=== PATIENT | male | born 1945 | race Caucasian/White ===

== ENCOUNTER 2017-07-18 10:13 | Observation (INO) | payer OTHER, MEDICARE ==
[~2017-07-18] VITALS: Ht 177.8 cm; Wt 86.0 kg
[~2017-07-18 10:13] MED LIST: AMLO5 PO; ATEN25 PO; ATOR40TA PO; Amiodarone HCl200 MG PO; Aspir 8181 MG PO; CAMPHETSO TOP; CARV25 PO; CHOL10002 PO; CLON1 PO; CYCL10 PO; DEPRESSION MED; Desyrel50 MG PO; FAMO40 PO; GABA300 PO; HYDR1TAB94 PO; LEVCAR25ER PO; LISI5 PO; Lasix40 MG PO; Lisinopril2.5 MG PO; METO50ER PO; Nicoderm Cq1 EAC1 TD; Percocet 5-3251 EACH PO; Prinivil10 MG PO; SERT50 PO; SPIR25 PO; VENL150ER PO; XARELTO20 MG PO; ZOLP10 PO
[2017-07-18] MEDS ORDERED: MIRT15 PO (10:24)
[2017-07-18] MEDS ORDERED: ACET325 PO (10:25)
[2017-07-18] MEDS ORDERED: ALBU90OI61 INH (10:25)
[2017-07-18] MEDS ORDERED: BUNAVAIL BC (10:26)
[2017-07-19] MEDS ORDERED: NICO21TP (01:16)
[2017-07-19 03:20] LABS: BASOPHILS ABSOLUTE AUTO 0.02 K/mm3 (0.00-0.23); BASOPHILS PERCENT AUTO 0 % (0-2); EOSINOPHILS PERCENT AUTO 0 % (0-6); Hematocrit 32.3 % (37.0-53.0); Hemoglobin 10.3 g/dL (13.5-17.5); IMMATURE GRAN ABSOLUTE AUTO 0.08 K/mm3 (0.00-0.10); IMMATURE GRAN PERCENT AUTO 1 % (0-1); LYMPHOCYTES ABSOLUTE AUTO 1.08 K/mm3 (0.84-5.20); LYMPHOCYTES PERCENT AUTO 6 % (21-46); MONOCYTES ABSOLUTE AUTO 0.51 K/mm3 (0.16-1.47); MONOCYTES PERCENT AUTO 3 % (4-13); Mean Corpuscular HGB 30.6 pg (26.0-34.0); Mean Corpuscular HGB Conc 31.9 g/dL (31.5-36.5); Mean Corpuscular Volume 96 fL (80-100); Mean Platelet Volume 9.3 fL (9.1-12.4); NEUTROPHILS ABSOLUTE AUTO 15.52 K/mm3 (1.96-9.15); NEUTROPHILS PERCENT AUTO 90 % (41-73); Platelet Count 282 K/mm3 (150-400); RDW Coefficient Variation 13.5 % (11.7-14.2); RDW Standard Deviation 47.4 fL (35.1-46.3); Red Blood Cell Count 3.37 M/mm3 (4.30-5.90); White Blood Cell Count 17.21 K/mm3 (4.00-11.30)
[2017-07-19 03:35] LABS: Anion Gap 8 mmol/L (6-16); Blood Urea Nitrogen 18 mg/dL (8-24); Bun/Creatinine Ratio 21.9 (12.0-20.0); CO2, Blood 27 mmol/L (21-32); Calcium, Blood 7.8 mg/dL (8.5-10.1); Chloride, Blood 108 mmol/L (98-108); Creatinine, Blood 0.82 mg/dL (0.60-1.20); Glomerular Filtration Rate >60 (60-); Glucose, Blood 142 mg/dL (70-99); Potassium, Blood 4.7 mmol/L (3.5-5.5); Sodium, Blood 143 mmol/L (136-145)
[2017-07-19] MEDS ORDERED: CARV6.25 PO (18:25)
[2017-07-19] MEDS ORDERED: OMEPRAZOLE MAGN20 MG PO (18:27)
== END 2017-07-19 19:00 | disposition home or self-care (01) ==
LOC: MHTC 10:13 → ICUW 14:59 → MHTC 15:00 → ICUW 07-19 19:00
PROVIDERS: Internal Medicine Clinical Cardiac Electrophysiology
DX: I48.1 Persistent atrial fibrillation (principal); I42.0 Dilated cardiomyopathy; I34.0 Nonrheumatic mitral (valve) insufficiency; I13.10 Hypertensive heart and chronic kidney disease without heart failure, with stage 1 through stage 4 chronic kidney disease, or unspecified chronic kidney disease; N18.2 Chronic kidney disease, stage 2 (mild); I25.10 Atherosclerotic heart disease of native coronary artery without angina pectoris; I25.2 Old myocardial infarction; F17.210 Nicotine dependence, cigarettes, uncomplicated; Z79.01 Long term (current) use of anticoagulants; Z79.899 Other long term (current) drug therapy
CPT/HCPCS: 36415; 36620; 76937; 80048; 83880; 85025; 85347; 85730; 93005; 93010; 93306; 93462; 93613; 93656; 93662; 96361; 96374; 96375; 96376; C1731; C1732; C1759; C1769; C1893; C1894; G0378; J1100; J1644; J1940; J2060; J2250; J2370; J2405; J2710; J2720; J3010; J7030; J7040; J7060; J7120

== ENCOUNTER 2018-01-09 15:51 | Inpatient (IN) | payer OTHER, MEDICARE ==
[~2018-01-09] VITALS: Ht 177.8 cm; Wt 92.5 kg
[~2018-01-09 15:51] MED LIST changes: +ACET325 PO; +ALBU90OI61 INH; +BUNAVAIL BC; +CARV6.25 PO; +MIRT15 PO; +NICO21TP; +OMEPRAZOLE MAGN20 MG PO
[2018-01-09 17:11] LABS: BASOPHILS ABSOLUTE AUTO 0.02 K/mm3 (0.00-0.23); BASOPHILS PERCENT AUTO 0 % (0-2); EOSINOPHILS ABSOLUTE AUTO 0.01 K/mm3 (0.00-0.68); EOSINOPHILS PERCENT AUTO 0 % (0-6); Hemoglobin 9.8 g/dL (13.5-17.5); IMMATURE GRAN PERCENT AUTO 1 % (0-1); LYMPHOCYTES ABSOLUTE AUTO 1.18 K/mm3 (0.84-5.20); LYMPHOCYTES PERCENT AUTO 7 % (21-46); MONOCYTES ABSOLUTE AUTO 0.88 K/mm3 (0.16-1.47); MONOCYTES PERCENT AUTO 5 % (4-13); Mean Corpuscular HGB 30.2 pg (26.0-34.0); Mean Corpuscular HGB Conc 32.7 g/dL (31.5-36.5); Mean Corpuscular Volume 93 fL (80-100); Mean Platelet Volume 10.1 fL (9.1-12.4); NEUTROPHILS ABSOLUTE AUTO 15.28 K/mm3 (1.96-9.15); NEUTROPHILS PERCENT AUTO 87 % (41-73); Platelet Count 159 K/mm3 (150-400); RDW Standard Deviation 47.9 fL (35.1-46.3); Red Blood Cell Count 3.24 M/mm3 (4.30-5.90); White Blood Cell Count 17.47 K/mm3 (4.00-11.30)
[2018-01-09 17:26] LABS: Base Excess Venous -12.6 mmol/L; Bicarbonate Venous 15.1 mmol/L (24.0-30.0); PCO2 Venous 40.8 mmHg (38-42); PO2 Venous 128 mmHg (38-42); pH Blood Venous 7.19 (7.34-7.37)
[2018-01-09 17:45] LABS: International Normalized Ratio 1.62; Prothrombin Time Results 16.2 Sec (9.7-11.5)
[2018-01-09 18:00] LABS: Base Excess Venous -11.9 mmol/L; Bicarbonate Venous 15.8 mmol/L (24.0-30.0); PCO2 Venous 33.9 mmHg (38-42); PO2 Venous 159 mmHg (38-42); pH Blood Venous 7.26 (7.34-7.37)
[2018-01-09 18:12] LABS: Calcium, Blood 7.3 mg/dL (8.5-10.1); Potassium, Blood 4.4 mmol/L (3.5-5.5)
[2018-01-09 18:19] LABS: Bun/Creatinine Ratio 10.8 (12.0-20.0); Creatinine, Blood 4.62 mg/dL (0.60-1.20)
[2018-01-09 18:30] LABS: Source, Urine Clean Catch
[2018-01-09 18:42] LABS: Bilirubin, Urine Neg (Neg); Blood, Urine 4+ (Neg); Glucose Qualitative, Urine Neg (Neg); Ketones, Urine 1+ (Neg); Leukocyte Esterase, Urine Neg (Neg); Nitrite, Urine Neg (Neg); Protein, Urine 2+ (Neg); Urobilinogen, Urine NORM (Normal)
[2018-01-09 18:48] LABS: Appearance, Urine Cloudy (Clear); Color, Urine Yellow (P-Yellow)
[2018-01-09 18:49] LABS: Amorphous Light (0-Heavy); Bacteria Few /hpf; Squamous Epithelial Cells Mod /hpf (Few)
[2018-01-09 20:12] LABS: Source, Urine Catheter
[2018-01-09 20:34] LABS: Bilirubin, Urine Neg (Neg); Blood, Urine 4+ (Neg); Glucose Qualitative, Urine Neg (Neg); Ketones, Urine Neg (Neg); Leukocyte Esterase, Urine Neg (Neg); Nitrite, Urine Neg (Neg); Protein, Urine 2+ (Neg); Specific Gravity, Urine 1.015 (1.003-1.022); Urobilinogen, Urine NORM (Normal)
[2018-01-09 20:43] LABS: Amorphous Mod (0-Heavy); Appearance, Urine Hazy (Clear); Bacteria Few /hpf; Color, Urine Yellow (P-Yellow); Squamous Epithelial Cells Few /hpf (Few); Transitional Epithelial Cells Few /hpf (0-Rare); White Blood Cells, Urine Rare /hpf (0-5)
[2018-01-09 20:58] LABS: Hematocrit 30.7 % (37.0-53.0); Hemoglobin 9.9 g/dL (13.5-17.5)
[2018-01-09 21:20] LABS: Albumin, Blood 2.4 g/dL (3.4-5.0); Albumin/Globulin Ratio 0.7 (0.8-1.8); Bilirubin, Total 0.5 mg/dL (0.1-1.0); Bun/Creatinine Ratio 12.2 (12.0-20.0); Creatinine, Blood 3.84 mg/dL (0.60-1.20); Globulin, Blood 3.5 g/dL (2.2-4.0); Potassium, Blood 4.6 mmol/L (3.5-5.5); Total Protein, Blood 5.9 g/dL (6.4-8.2)
[2018-01-09] MEDS ORDERED: Carvedilol12.5 MG PO (21:30)
[2018-01-09] MEDS ORDERED: GABA400 PO (21:31)
[2018-01-09] MEDS ORDERED: SERT100 PO (21:33)
[2018-01-10 05:18] LABS: BASOPHILS ABSOLUTE AUTO 0.02 K/mm3 (0.00-0.23); BASOPHILS PERCENT AUTO 0 % (0-2); EOSINOPHILS ABSOLUTE AUTO 0.03 K/mm3 (0.00-0.68); EOSINOPHILS PERCENT AUTO 0 % (0-6); Hematocrit 32.3 % (37.0-53.0); Hemoglobin 10.7 g/dL (13.5-17.5); IMMATURE GRAN ABSOLUTE AUTO 0.11 K/mm3 (0.00-0.10); IMMATURE GRAN PERCENT AUTO 1 % (0-1); LYMPHOCYTES ABSOLUTE AUTO 0.96 K/mm3 (0.84-5.20); LYMPHOCYTES PERCENT AUTO 5 % (21-46); MONOCYTES ABSOLUTE AUTO 0.83 K/mm3 (0.16-1.47); MONOCYTES PERCENT AUTO 5 % (4-13); Mean Corpuscular HGB 29.5 pg (26.0-34.0); Mean Corpuscular HGB Conc 33.1 g/dL (31.5-36.5); Mean Platelet Volume 10.3 fL (9.1-12.4); NEUTROPHILS ABSOLUTE AUTO 16.52 K/mm3 (1.96-9.15); NEUTROPHILS PERCENT AUTO 89 % (41-73); Platelet Count 153 K/mm3 (150-400); RDW Coefficient Variation 14.2 % (11.7-14.2); RDW Standard Deviation 46.2 fL (35.1-46.3); Red Blood Cell Count 3.63 M/mm3 (4.30-5.90); White Blood Cell Count 18.47 K/mm3 (4.00-11.30)
[2018-01-10 05:20] LABS: Mean Corpuscular Volume 89 fL (80-100)
[2018-01-10 05:34] LABS: Magnesium, Blood 1.5 mg/dL (1.6-2.4)
[2018-01-10 05:42] LABS: Bun/Creatinine Ratio 15.1 (12.0-20.0); Calcium, Blood 7.2 mg/dL (8.5-10.1); Creatinine, Blood 2.85 mg/dL (0.60-1.20); Phosphorus, Blood 3.5 mg/dL (2.5-4.9); Potassium, Blood 4.7 mmol/L (3.5-5.5); Troponin I 0.652 ng/mL (0.000-0.040)
[2018-01-10 19:58] LABS: PCO2 Arterial 35.2 mmHg (35-45); PO2 Arterial 56.3 mmHg (80-100)
[2018-01-10 20:32] LABS: Calcium, Blood 7.8 mg/dL (8.5-10.1); Creatinine, Blood 1.65 mg/dL (0.60-1.20)
[2018-01-11 04:09] LABS: BASOPHILS ABSOLUTE AUTO 0.02 K/mm3 (0.00-0.23); BASOPHILS PERCENT AUTO 0 % (0-2); EOSINOPHILS PERCENT AUTO 1 % (0-6); Hematocrit 26.9 % (37.0-53.0); IMMATURE GRAN PERCENT AUTO 1 % (0-1); LYMPHOCYTES ABSOLUTE AUTO 1.06 K/mm3 (0.84-5.20); LYMPHOCYTES PERCENT AUTO 8 % (21-46); MONOCYTES ABSOLUTE AUTO 0.63 K/mm3 (0.16-1.47); MONOCYTES PERCENT AUTO 5 % (4-13); Mean Corpuscular HGB 29.9 pg (26.0-34.0); Mean Corpuscular HGB Conc 33.5 g/dL (31.5-36.5); Mean Corpuscular Volume 89 fL (80-100); Mean Platelet Volume 10.2 fL (9.1-12.4); NEUTROPHILS ABSOLUTE AUTO 11.07 K/mm3 (1.96-9.15); NEUTROPHILS PERCENT AUTO 85 % (41-73); Platelet Count 151 K/mm3 (150-400); RDW Coefficient Variation 14.2 % (11.7-14.2); RDW Standard Deviation 46.4 fL (35.1-46.3); Red Blood Cell Count 3.01 M/mm3 (4.30-5.90); White Blood Cell Count 12.98 K/mm3 (4.00-11.30)
[2018-01-11 04:22] LABS: Albumin, Blood 2.1 g/dL (3.4-5.0); Anion Gap 6 mmol/L (6-16); Blood Urea Nitrogen 28 mg/dL (8-24); Bun/Creatinine Ratio 21.2 (12.0-20.0); CO2, Blood 25 mmol/L (21-32); Calcium, Blood 7.7 mg/dL (8.5-10.1); Chloride, Blood 109 mmol/L (98-108); Creatinine, Blood 1.32 mg/dL (0.60-1.20); Glomerular Filtration Rate 56 (60-); Glucose, Blood 106 mg/dL (70-99); Magnesium, Blood 1.6 mg/dL (1.6-2.4); Phosphorus, Blood 2.1 mg/dL (2.5-4.9); Potassium, Blood 3.8 mmol/L (3.5-5.5); Sodium, Blood 140 mmol/L (136-145)
[2018-01-11 08:48] LABS: Stool Occult Blood Guaiac 1 Neg (Neg)
[2018-01-12 03:48] LABS: BASOPHILS ABSOLUTE AUTO 0.01 K/mm3 (0.00-0.23); BASOPHILS PERCENT AUTO 0 % (0-2); EOSINOPHILS ABSOLUTE AUTO 0.24 K/mm3 (0.00-0.68); EOSINOPHILS PERCENT AUTO 2 % (0-6); Hematocrit 26.7 % (37.0-53.0); Hemoglobin 8.9 g/dL (13.5-17.5); IMMATURE GRAN ABSOLUTE AUTO 0.06 K/mm3 (0.00-0.10); IMMATURE GRAN PERCENT AUTO 1 % (0-1); LYMPHOCYTES ABSOLUTE AUTO 0.97 K/mm3 (0.84-5.20); LYMPHOCYTES PERCENT AUTO 8 % (21-46); MONOCYTES ABSOLUTE AUTO 0.62 K/mm3 (0.16-1.47); MONOCYTES PERCENT AUTO 5 % (4-13); Mean Corpuscular HGB 30.1 pg (26.0-34.0); Mean Corpuscular HGB Conc 33.3 g/dL (31.5-36.5); Mean Corpuscular Volume 90 fL (80-100); Mean Platelet Volume 9.9 fL (9.1-12.4); NEUTROPHILS ABSOLUTE AUTO 9.92 K/mm3 (1.96-9.15); NEUTROPHILS PERCENT AUTO 84 % (41-73); Platelet Count 178 K/mm3 (150-400); RDW Coefficient Variation 14.2 % (11.7-14.2); RDW Standard Deviation 46.8 fL (35.1-46.3); Red Blood Cell Count 2.96 M/mm3 (4.30-5.90); White Blood Cell Count 11.82 K/mm3 (4.00-11.30)
[2018-01-12 04:02] LABS: Anion Gap 7 mmol/L (6-16); Blood Urea Nitrogen 20 mg/dL (8-24); Bun/Creatinine Ratio 18.7 (12.0-20.0); CO2, Blood 27 mmol/L (21-32); Calcium, Blood 7.9 mg/dL (8.5-10.1); Chloride, Blood 108 mmol/L (98-108); Creatinine, Blood 1.07 mg/dL (0.60-1.20); Glomerular Filtration Rate >60 (60-); Glucose, Blood 103 mg/dL (70-99); Magnesium, Blood 1.3 mg/dL (1.6-2.4); Phosphorus, Blood 2.5 mg/dL (2.5-4.9); Potassium, Blood 3.7 mmol/L (3.5-5.5); Sodium, Blood 142 mmol/L (136-145)
[2018-01-12 08:02] LABS: Base Excess Venous 3.9 mmol/L; Bicarbonate Venous 27.5 mmol/L (24.0-30.0); PCO2 Venous 43.1 mmHg (38-42); PO2 Venous 68.8 mmHg (38-42); pH Blood Venous 7.43 (7.34-7.37)
[2018-01-13 04:43] LABS: BASOPHILS ABSOLUTE AUTO 0.01 K/mm3 (0.00-0.23); BASOPHILS PERCENT AUTO 0 % (0-2); EOSINOPHILS ABSOLUTE AUTO 0.39 K/mm3 (0.00-0.68); EOSINOPHILS PERCENT AUTO 4 % (0-6); Hematocrit 26.4 % (37.0-53.0); Hemoglobin 8.4 g/dL (13.5-17.5); IMMATURE GRAN ABSOLUTE AUTO 0.04 K/mm3 (0.00-0.10); IMMATURE GRAN PERCENT AUTO 0 % (0-1); LYMPHOCYTES ABSOLUTE AUTO 1.03 K/mm3 (0.84-5.20); LYMPHOCYTES PERCENT AUTO 10 % (21-46); MONOCYTES ABSOLUTE AUTO 0.65 K/mm3 (0.16-1.47); MONOCYTES PERCENT AUTO 6 % (4-13); Mean Corpuscular HGB 28.8 pg (26.0-34.0); Mean Corpuscular HGB Conc 31.8 g/dL (31.5-36.5); Mean Corpuscular Volume 90 fL (80-100); Mean Platelet Volume 10.1 fL (9.1-12.4); NEUTROPHILS ABSOLUTE AUTO 8.11 K/mm3 (1.96-9.15); NEUTROPHILS PERCENT AUTO 79 % (41-73); Platelet Count 191 K/mm3 (150-400); RDW Coefficient Variation 14.2 % (11.7-14.2); RDW Standard Deviation 46.9 fL (35.1-46.3); Red Blood Cell Count 2.92 M/mm3 (4.30-5.90); White Blood Cell Count 10.23 K/mm3 (4.00-11.30)
[2018-01-13 05:19] LABS: Albumin, Blood 1.8 g/dL (3.4-5.0); Anion Gap 8 mmol/L (6-16); Blood Urea Nitrogen 19 mg/dL (8-24); Bun/Creatinine Ratio 18.4 (12.0-20.0); CO2, Blood 29 mmol/L (21-32); Calcium, Blood 7.8 mg/dL (8.5-10.1); Chloride, Blood 104 mmol/L (98-108); Creatinine, Blood 1.03 mg/dL (0.60-1.20); Glomerular Filtration Rate >60 (60-); Glucose, Blood 101 mg/dL (70-99); Magnesium, Blood 1.4 mg/dL (1.6-2.4); Potassium, Blood 3.2 mmol/L (3.5-5.5); Sodium, Blood 141 mmol/L (136-145)
[2018-01-14 08:35] LABS: Anion Gap 8 mmol/L (6-16); Blood Urea Nitrogen 22 mg/dL (8-24); CO2, Blood 30 mmol/L (21-32); Calcium, Blood 8.3 mg/dL (8.5-10.1); Chloride, Blood 103 mmol/L (98-108); Creatinine, Blood 0.85 mg/dL (0.60-1.20); Glomerular Filtration Rate >60 (60-); Glucose, Blood 112 mg/dL (70-99); Magnesium, Blood 1.8 mg/dL (1.6-2.4); Potassium, Blood 3.1 mmol/L (3.5-5.5); Sodium, Blood 141 mmol/L (136-145)
[2018-01-15 10:48] LABS: Anion Gap 8 mmol/L (6-16); Blood Urea Nitrogen 22 mg/dL (8-24); Bun/Creatinine Ratio 23.1 (12.0-20.0); CO2, Blood 32 mmol/L (21-32); Calcium, Blood 8.8 mg/dL (8.5-10.1); Chloride, Blood 101 mmol/L (98-108); Creatinine, Blood 0.95 mg/dL (0.60-1.20); Glomerular Filtration Rate >60 (60-); Glucose, Blood 125 mg/dL (70-99); Potassium, Blood 3.2 mmol/L (3.5-5.5); Sodium, Blood 141 mmol/L (136-145)
[2018-01-15 15:24] LABS: A/G RATIO 0.9 (0.7-1.7); ALBUMIN 2.4 g/dL (2.9-4.4); ALPHA-1-GLOBULIN 0.4 g/dL (0.0-0.4); BETA GLOBULIN 0.7 g/dL (0.7-1.3); GAMMA GLOBULIN 0.9 g/dL (0.4-1.8); IMMUNOGLOBULIN A, QN, SERUM 195 mg/dL (61-437); IMMUNOGLOBULIN G, QN, SERUM 719 mg/dL (700-1600); IMMUNOGLOBULIN M, QN, SERUM 114 mg/dL (15-143); M-SPIKE Not Observed g/dL (Not Observed); PROTEIN, TOTAL, SERUM 5.4 g/dL (6.0-8.5)
[2018-01-16 06:39] LABS: BASOPHILS ABSOLUTE AUTO 0.03 K/mm3 (0.00-0.23); BASOPHILS PERCENT AUTO 0 % (0-2); EOSINOPHILS ABSOLUTE AUTO 0.58 K/mm3 (0.00-0.68); EOSINOPHILS PERCENT AUTO 7 % (0-6); Hematocrit 28.4 % (37.0-53.0); Hemoglobin 9.1 g/dL (13.5-17.5); IMMATURE GRAN ABSOLUTE AUTO 0.05 K/mm3 (0.00-0.10); IMMATURE GRAN PERCENT AUTO 1 % (0-1); LYMPHOCYTES ABSOLUTE AUTO 1.43 K/mm3 (0.84-5.20); LYMPHOCYTES PERCENT AUTO 17 % (21-46); MONOCYTES ABSOLUTE AUTO 0.54 K/mm3 (0.16-1.47); MONOCYTES PERCENT AUTO 6 % (4-13); Mean Corpuscular HGB 29.8 pg (26.0-34.0); Mean Platelet Volume 9.3 fL (9.1-12.4); NEUTROPHILS ABSOLUTE AUTO 6.02 K/mm3 (1.96-9.15); NEUTROPHILS PERCENT AUTO 70 % (41-73); Platelet Count 303 K/mm3 (150-400); RDW Coefficient Variation 14.2 % (11.7-14.2); RDW Standard Deviation 48.1 fL (35.1-46.3); Red Blood Cell Count 3.05 M/mm3 (4.30-5.90); White Blood Cell Count 8.65 K/mm3 (4.00-11.30)
[2018-01-16 06:41] LABS: Mean Corpuscular Volume 93 fL (80-100)
[2018-01-16 07:06] LABS: Anion Gap 8 mmol/L (6-16); Blood Urea Nitrogen 20 mg/dL (8-24); Bun/Creatinine Ratio 22.8 (12.0-20.0); CO2, Blood 32 mmol/L (21-32); Calcium, Blood 8.3 mg/dL (8.5-10.1); Chloride, Blood 103 mmol/L (98-108); Creatinine, Blood 0.88 mg/dL (0.60-1.20); Glomerular Filtration Rate >60 (60-); Glucose, Blood 98 mg/dL (70-99); Magnesium, Blood 1.7 mg/dL (1.6-2.4); Phosphorus, Blood 3.1 mg/dL (2.5-4.9); Potassium, Blood 3.3 mmol/L (3.5-5.5); Sodium, Blood 143 mmol/L (136-145)
[2018-01-16 15:18] LABS: M-SPIKE, % Not Observed % (Not Observed); PROTEIN,TOTAL,URINE 35.6 mg/dL (Not Estab.)
[2018-01-16 16:15] LABS: A/G RATIO 0.8 (0.7-1.7); ALBUMIN 2.2 g/dL (2.9-4.4); ALPHA-1-GLOBULIN 0.5 g/dL (0.0-0.4); ALPHA-2-GLOBULIN 0.9 g/dL (0.4-1.0); BETA GLOBULIN 0.7 g/dL (0.7-1.3); GAMMA GLOBULIN 0.7 g/dL (0.4-1.8); GLOBULIN, TOTAL 2.8 g/dL (2.2-3.9); IMMUNOGLOBULIN A, QN, SERUM 179 mg/dL (61-437); IMMUNOGLOBULIN G, QN, SERUM 636 mg/dL (700-1600); IMMUNOGLOBULIN M, QN, SERUM 105 mg/dL (15-143); M-SPIKE Not Observed g/dL (Not Observed)
[2018-01-17 05:31] LABS: Anion Gap 8 mmol/L (6-16); Blood Urea Nitrogen 21 mg/dL (8-24); Bun/Creatinine Ratio 21.7 (12.0-20.0); CO2, Blood 33 mmol/L (21-32); Calcium, Blood 8.3 mg/dL (8.5-10.1); Chloride, Blood 100 mmol/L (98-108); Creatinine, Blood 0.97 mg/dL (0.60-1.20); Glomerular Filtration Rate >60 (60-); Glucose, Blood 103 mg/dL (70-99); Magnesium, Blood 1.9 mg/dL (1.6-2.4); Phosphorus, Blood 3.4 mg/dL (2.5-4.9); Potassium, Blood 3.6 mmol/L (3.5-5.5); Sodium, Blood 141 mmol/L (136-145)
[2018-01-18 05:32] LABS: Anion Gap 8 mmol/L (6-16); Blood Urea Nitrogen 24 mg/dL (8-24); Bun/Creatinine Ratio 23.1 (12.0-20.0); CO2, Blood 34 mmol/L (21-32); Calcium, Blood 8.3 mg/dL (8.5-10.1); Chloride, Blood 98 mmol/L (98-108); Creatinine, Blood 1.04 mg/dL (0.60-1.20); Glomerular Filtration Rate >60 (60-); Glucose, Blood 106 mg/dL (70-99); Magnesium, Blood 1.8 mg/dL (1.6-2.4); Potassium, Blood 3.7 mmol/L (3.5-5.5); Sodium, Blood 140 mmol/L (136-145)
[2018-01-19 04:54] LABS: BASOPHILS ABSOLUTE AUTO 0.03 K/mm3 (0.00-0.23); BASOPHILS PERCENT AUTO 0 % (0-2); EOSINOPHILS ABSOLUTE AUTO 0.42 K/mm3 (0.00-0.68); EOSINOPHILS PERCENT AUTO 6 % (0-6); Hematocrit 32.2 % (37.0-53.0); Hemoglobin 9.9 g/dL (13.5-17.5); IMMATURE GRAN ABSOLUTE AUTO 0.08 K/mm3 (0.00-0.10); IMMATURE GRAN PERCENT AUTO 1 % (0-1); LYMPHOCYTES ABSOLUTE AUTO 1.25 K/mm3 (0.84-5.20); LYMPHOCYTES PERCENT AUTO 17 % (21-46); MONOCYTES ABSOLUTE AUTO 0.55 K/mm3 (0.16-1.47); MONOCYTES PERCENT AUTO 7 % (4-13); Mean Corpuscular HGB 28.5 pg (26.0-34.0); Mean Corpuscular HGB Conc 30.7 g/dL (31.5-36.5); Mean Corpuscular Volume 93 fL (80-100); Mean Platelet Volume 9.7 fL (9.1-12.4); NEUTROPHILS ABSOLUTE AUTO 5.09 K/mm3 (1.96-9.15); NEUTROPHILS PERCENT AUTO 69 % (41-73); Platelet Count 356 K/mm3 (150-400); RDW Coefficient Variation 13.9 % (11.7-14.2); RDW Standard Deviation 47.3 fL (35.1-46.3); Red Blood Cell Count 3.47 M/mm3 (4.30-5.90); White Blood Cell Count 7.42 K/mm3 (4.00-11.30)
[2018-01-19 05:14] LABS: Anion Gap 7 mmol/L (6-16); Blood Urea Nitrogen 22 mg/dL (8-24); Bun/Creatinine Ratio 22.9 (12.0-20.0); CO2, Blood 35 mmol/L (21-32); Calcium, Blood 8.3 mg/dL (8.5-10.1); Chloride, Blood 98 mmol/L (98-108); Creatinine, Blood 0.96 mg/dL (0.60-1.20); Glomerular Filtration Rate >60 (60-); Glucose, Blood 100 mg/dL (70-99); Potassium, Blood 4.2 mmol/L (3.5-5.5); Sodium, Blood 140 mmol/L (136-145)
[2018-01-20] MEDS ORDERED: SERT50 PO (12:50)
[2018-01-20] MEDS ORDERED: SPIR50 PO (12:50)
[2018-01-20] MEDS ORDERED: FURO80 PO (12:54)
[2018-01-20] MEDS ORDERED: TAMS.4ER PO (12:55)
[2018-01-20] MEDS ORDERED: Aspirin EC81 MG PO (12:56)
== END 2018-01-20 13:59 | disposition home or self-care (01) | DRG 871 ==
LOC: ER 15:51 → ICUW 15:52 → ICUE 17:08 → ICUW 17:20 → PCU 20:24 → ICUE 20:24 → PCU 01-12 14:13 → MEDS 01-15 18:37 → EDPENDDIS 01-19 10:14 → ENPENDDIS 01-19 10:14 → EDPENDDISTM 01-20 09:28 → EDPENDDIS 01-20 09:28 → EDPENDDISDT 01-20 09:28 → MEDS 01-20 13:59
PROVIDERS: Emergency Medicine; Internal Medicine; Internal Medicine Critical Care Medicine; Internal Medicine Nephrology; Nurse Practitioner Acute Care
DX: A41.9 Sepsis, unspecified organism (principal); G93.41 Metabolic encephalopathy; J96.01 Acute respiratory failure with hypoxia; J18.9 Pneumonia, unspecified organism; N17.0 Acute kidney failure with tubular necrosis; I50.43 Acute on chronic combined systolic (congestive) and diastolic (congestive) heart failure; I21.9 Acute myocardial infarction, unspecified; I21.3 ST elevation (STEMI) myocardial infarction of unspecified site; E87.2 Acidosis; R65.20 Severe sepsis without septic shock; E78.5 Hyperlipidemia, unspecified; F41.8 Other specified anxiety disorders; F43.10 Post-traumatic stress disorder, unspecified; K21.9 Gastro-esophageal reflux disease without esophagitis; I48.2 Chronic atrial fibrillation; F17.210 Nicotine dependence, cigarettes, uncomplicated; I95.9 Hypotension, unspecified; D64.9 Anemia, unspecified; I25.2 Old myocardial infarction; I11.0 Hypertensive heart disease with heart failure; Z96.653 Presence of artificial knee joint, bilateral; E83.42 Hypomagnesemia; I25.5 Ischemic cardiomyopathy; F03.90 Unspecified dementia, unspecified severity, without behavioral disturbance, psychotic disturbance, mood disturbance, and anxiety; E83.39 Other disorders of phosphorus metabolism; E87.6 Hypokalemia; G89.4 Chronic pain syndrome
CPT/HCPCS: 36415; 36600; 71045; 71046; 76770; 80048; 80053; 80069; 81001; 82272; 82550; 82784; 82803; 83605; 83735; 83880; 84100; 84132; 84145; 84156; 84165; 84166; 84443; 84484; 85014; 85018; 85025; 85379; 85610; 86334; 86850; 86900; 86901; 87040; 87070; 87205; 93005; 93010; 93308; 93321; 94640; 94660; 94760; 94761; 94762; 97110; 97116; 97161; 97530; 99285-25; C9113; G8978; G8979; J0696; J1940; J1956; J2405; J3475; J7030; J7060; J7070; J7120

== ENCOUNTER 2020-03-11 06:03 | Day surgery (SDC) | payer OTHER, MEDICARE ==
[~2020-03-11] VITALS: Ht 182.9 cm; Wt 100.0 kg
[~2020-03-11 06:03] MED LIST changes: +ABAT250V; +Aspirin EC81 MG PO; +Bisoprolol Fumar5 MG PO; +Carvedilol12.5 MG PO; +FURO80 PO; +GABA400 PO; +Nitroglycerin1 EAC3 TOP; +PROAIR DIGIHAL90 MCG IH; +SERT100 PO; +SPIR50 PO; +TAMS.4ER PO
[2020-03-11] MEDS ORDERED: GABA100 PO (06:31)
[2020-03-11] MEDS ORDERED: NITROGLYCERIN TD (06:35)
[2020-03-11] MEDS ORDERED: [UNRECOGNIZED DRUG - OTHER] BC (06:38)
--- NOTE | 2020-03-11 09:02 | NUR ---
0835 ASSUMED CARE OF PATIENT, SBAR FROM FIONA ARCHIBALD. DIET ORDERED AND PATIENT IN THE MONITOR IN A RECLINER, NO PAIN NOTED. CALL LIGHT IN REACH. TR BAND IN PLACE TO THE RIGHT RADIAL AND WHITE BOARD IN USE. NO BLEEDING NOTED.
--- NOTE | 2020-03-11 09:55 | NUR ---
0950 BEGAN REMOVING AIR FROM THE TR BAND. NO BLEEDING NOTED. CONTINUE TO MONITOR.
--- NOTE | 2020-03-11 10:31 | NUR ---
PATIENT TR BAND IS FLAT. NO BLEEDING NOTED. PATIENT UP TO DRESS AND TO THE RESTROOM. ALL BELONGINGS GATHERED. REVIEWED DISCHARGE INSTRUCTIONS.
--- NOTE | 2020-03-11 11:02 | NUR ---
1100 TR BAND REMOVED AND SITE CLEANED, CLOTH DOT APPLIED AND WHITE BOARD REPLACED. PATIENT INSTRUCTED TO WEAR THE WHITE BOARD FOR 24 HOURS TO RESTRICT MOVEMENT AND FROM BENDING RIGHT WRIST. NO BLEEDING NOTED. NO PAIN NOTED. REVIEWED DISCHARGE INSTRUCTIONS AND PATIENT UNDERSTANDS THAT HE WILL BE CONTACTED BY THE [facility] IN [place] FOR INSTRUCTIONS REGARDING SURGERY. PATIENT DISCHARGED, ALL BELONGINGS RETAINED AND INSTRUCTIONS IN HAND, VIA WHEELCHAIR TO SISTER HIS ASH PIT WORKER.
== END 2020-03-11 12:22 | disposition home or self-care (01) ==
LOC: MHTC 06:03
PROC: 4A023N7 Measurement of Cardiac Sampling and Pressure, Left Heart, Percutaneous Approach (ICD-10-PCS; principal; 2020-03-11)
PROC: B201YZZ Plain Radiography of Multiple Coronary Arteries using Other Contrast (ICD-10-PCS; principal; 2020-03-11)
DX: I25.119 Atherosclerotic heart disease of native coronary artery with unspecified angina pectoris (principal); I25.82 Chronic total occlusion of coronary artery; I13.0 Hypertensive heart and chronic kidney disease with heart failure and stage 1 through stage 4 chronic kidney disease, or unspecified chronic kidney disease; R07.89 Other chest pain; I25.5 Ischemic cardiomyopathy; I50.21 Acute systolic (congestive) heart failure; F41.9 Anxiety disorder, unspecified; E66.9 Obesity, unspecified; E78.00 Pure hypercholesterolemia, unspecified; Z79.82 Long term (current) use of aspirin; F17.210 Nicotine dependence, cigarettes, uncomplicated; N18.1 Chronic kidney disease, stage 1; Z79.01 Long term (current) use of anticoagulants; Z79.899 Other long term (current) drug therapy; Z68.32 Body mass index [BMI] 32.0-32.9, adult
CPT/HCPCS: 76937; 85347; 93454; 93458; 99152; 99153; C1769; C1894; J1644; J2250; J3010; J7030; J7040; Q9967

== ENCOUNTER 2020-11-17 16:29 | Emergency (ER) | payer OTHER ==
[~2020-11-17] VITALS: Ht 182.9 cm; Wt 93.0 kg
[~2020-11-17 16:29] MED LIST changes: +GABA100 PO; +K-Dur10 MEQ PO; +Lasix20 MG PO; +NITROGLYCERIN TD; -XARELTO20 MG PO; +[UNRECOGNIZED DRUG - OTHER] BC
[2020-11-17 17:12] LABS: BASOPHILS ABSOLUTE AUTO 0.06 K/mm3 (0.00-0.23); BASOPHILS PERCENT AUTO 1 % (0-2); EOSINOPHILS ABSOLUTE AUTO 0.36 K/mm3 (0.00-0.68); EOSINOPHILS PERCENT AUTO 4 % (0-6); Hematocrit 28.1 % (37.0-53.0); Hemoglobin 8.4 g/dL (13.5-17.5); IMMATURE GRAN ABSOLUTE AUTO 0.03 K/mm3 (0.00-0.10); IMMATURE GRAN PERCENT AUTO 0 % (0-1); LYMPHOCYTES ABSOLUTE AUTO 2.27 K/mm3 (0.84-5.20); LYMPHOCYTES PERCENT AUTO 26 % (21-46); MONOCYTES ABSOLUTE AUTO 0.68 K/mm3 (0.16-1.47); MONOCYTES PERCENT AUTO 8 % (4-13); Mean Corpuscular HGB Conc 29.9 g/dL (31.5-36.5); Mean Corpuscular Volume 87 fL (80-100); Mean Platelet Volume 10.6 fL (9.1-12.4); NEUTROPHILS ABSOLUTE AUTO 5.39 K/mm3 (1.96-9.15); NEUTROPHILS PERCENT AUTO 61 % (41-73); Platelet Count 292 K/mm3 (150-400); RDW Coefficient Variation 15.9 % (11.7-14.2); RDW Standard Deviation 50.8 fL (35.1-46.3); Red Blood Cell Count 3.23 M/mm3 (4.30-5.90); White Blood Cell Count 8.79 K/mm3 (4.00-11.30)
[2020-11-17 17:34] LABS: International Normalized Ratio 1.09; Prothrombin Time Results 11.7 Sec (9.7-11.5)
[2020-11-17 17:36] LABS: Albumin, Blood 3.3 g/dL (3.4-5.0); Albumin/Globulin Ratio 0.8 (0.8-1.8); Bilirubin, Total 0.3 mg/dL (0.1-1.0); Bun/Creatinine Ratio 18.3 (12.0-20.0); Calcium, Blood 8.6 mg/dL (8.5-10.1); Creatinine, Blood 1.31 mg/dL (0.60-1.20); Globulin, Blood 4.2 g/dL (2.2-4.0); Potassium, Blood 4.1 mmol/L (3.5-5.5); Total Protein, Blood 7.5 g/dL (6.4-8.2)
[2020-12-23] MEDS ORDERED: ASPI81CH PO (23:35)
[2020-12-26] MEDS ORDERED: ALBU2.5V5 INH (11:19)
== END 2020-11-17 18:15 | disposition home or self-care (01) ==
LOC: ER 16:29
PROVIDERS: Physician Assistant
DX: S41.112A Laceration without foreign body of left upper arm, initial encounter (principal); I10 Essential (primary) hypertension; I25.2 Old myocardial infarction; F17.210 Nicotine dependence, cigarettes, uncomplicated; Z79.01 Long term (current) use of anticoagulants; W45.8XXA Other foreign body or object entering through skin, initial encounter
CPT/HCPCS: 12001; 36415; 80053; 85025; 85610; 90471; 90714; 99283-25

== ENCOUNTER 2020-12-22 11:40 | Emergency (ER) | payer OTHER, MEDICARE ==
[~2020-12-22] VITALS: Ht 182.9 cm; Wt 90.7 kg
[2020-12-23] MEDS ORDERED: ASPI81CH PO ×2 (23:35)
[2021-01-12] MEDS ORDERED: Bisoprolol Fumar5 MG PO ×2 (16:43)
[2021-01-12] MEDS ORDERED: ATOR40TA PO ×2 (16:44)
[2021-01-12] MEDS ORDERED: Acetaminophen650 M1 PO ×2 (16:45)
[2021-01-12] MEDS ORDERED: CLOP75 PO ×2 (16:48)
[2021-01-12] MEDS ORDERED: GABA400 PO ×2 (16:50)
[2021-01-12] MEDS ORDERED: Isosorbide Mono30 MG PO ×2 (16:51)
[2021-01-12] MEDS ORDERED: HYDHCL25 PO ×2 (16:51)
[2021-01-12] MEDS ORDERED: DILT30 PO ×2 (16:53)
[2021-01-12] MEDS ORDERED: NICODERM CQ1 EA11 TD ×2 (16:55)
[2021-01-12] MEDS ORDERED: POTA10T PO ×2 (16:56)
[2021-01-12] MEDS ORDERED: NITR.4SL SL ×2 (16:56)
[2021-01-12] MEDS ORDERED: SPIR25 PO ×2 (16:57)
[2021-01-12] MEDS ORDERED: SERT50 PO ×2 (16:57)
[2021-01-12] MEDS ORDERED: XARELTO20 MG PO ×2 (16:57)
[2021-01-12] MEDS ORDERED: TAMS.4ER PO ×2 (16:57)
== END 2020-12-22 13:15 | disposition home or self-care (01) ==
LOC: ER 11:40
DX: S41.112A Laceration without foreign body of left upper arm, initial encounter (principal); K21.9 Gastro-esophageal reflux disease without esophagitis; I25.10 Atherosclerotic heart disease of native coronary artery without angina pectoris; I25.2 Old myocardial infarction; I48.91 Unspecified atrial fibrillation; I11.0 Hypertensive heart disease with heart failure; I50.9 Heart failure, unspecified; F17.210 Nicotine dependence, cigarettes, uncomplicated; Z79.01 Long term (current) use of anticoagulants; W45.8XXA Other foreign body or object entering through skin, initial encounter
CPT/HCPCS: 99282

== ENCOUNTER 2020-12-23 18:10 | Observation (INO) | payer OTHER ==
[~2020-12-23] VITALS: Ht 182.9 cm; Wt 90.7 kg
[2020-12-23 18:27] LABS: BASOPHILS ABSOLUTE AUTO 0.04 K/mm3 (0.00-0.23); BASOPHILS PERCENT AUTO 1 % (0-2); EOSINOPHILS ABSOLUTE AUTO 0.24 K/mm3 (0.00-0.68); EOSINOPHILS PERCENT AUTO 3 % (0-6); Hematocrit 30.5 % (37.0-53.0); Hemoglobin 9.1 g/dL (13.5-17.5); IMMATURE GRAN ABSOLUTE AUTO 0.01 K/mm3 (0.00-0.10); IMMATURE GRAN PERCENT AUTO 0 % (0-1); LYMPHOCYTES ABSOLUTE AUTO 1.77 K/mm3 (0.84-5.20); LYMPHOCYTES PERCENT AUTO 24 % (21-46); MONOCYTES ABSOLUTE AUTO 0.62 K/mm3 (0.16-1.47); MONOCYTES PERCENT AUTO 8 % (4-13); Mean Corpuscular HGB 24.1 pg (26.0-34.0); Mean Corpuscular HGB Conc 29.8 g/dL (31.5-36.5); Mean Corpuscular Volume 81 fL (80-100); Mean Platelet Volume 10.5 fL (9.1-12.4); NEUTROPHILS ABSOLUTE AUTO 4.69 K/mm3 (1.96-9.15); NEUTROPHILS PERCENT AUTO 64 % (41-73); Platelet Count 288 K/mm3 (150-400); RDW Coefficient Variation 17.2 % (11.7-14.2); RDW Standard Deviation 50.4 fL (35.1-46.3); Red Blood Cell Count 3.78 M/mm3 (4.30-5.90); White Blood Cell Count 7.37 K/mm3 (4.00-11.30)
[2020-12-23 18:48] LABS: Alanine Aminotransfer (ALT/SGP 15 U/L (12-78); Albumin, Blood 3.2 g/dL (3.4-5.0); Albumin/Globulin Ratio 0.7 (0.8-1.8); Alk Phos 130 U/L (50-136); Anion Gap 8 mmol/L (6-16); Aspartate Aminotrans (AST/SGOT 18 U/L (12-37); Bilirubin, Total 0.3 mg/dL (0.1-1.0); Blood Urea Nitrogen 32 mg/dL (8-24); Bun/Creatinine Ratio 17.5 (12.0-20.0); CO2, Blood 25 mmol/L (21-32); Calcium, Blood 8.8 mg/dL (8.5-10.1); Chloride, Blood 106 mmol/L (98-108); Creatinine, Blood 1.83 mg/dL (0.60-1.20); Globulin, Blood 4.3 g/dL (2.2-4.0); Glomerular Filtration Rate 38 (60-); Glucose, Blood 121 mg/dL (70-99); Potassium, Blood 3.9 mmol/L (3.5-5.5); Sodium, Blood 139 mmol/L (136-145); Total Protein, Blood 7.5 g/dL (6.4-8.2)
[2020-12-23 21:51] LABS: PCO2 Arterial 42.8 mmHg (35-45); PO2 Arterial 64.5 mmHg (80-100); pH Blood Arterial 7.42 (7.35-7.45)
[2020-12-23 22:17] LABS: Troponin I <0.015 ng/mL (0.000-0.040)
[2020-12-23] MEDS ORDERED: ASPI81CH PO ×2 (23:35)
--- NOTE | 2020-12-24 04:03 | NUR ---
JUNIOR ACCOUNTANT BOOKKEEPER SUMMARY PT NEW ADMIT, ARRIVE TO FLOOR AT 2345. A/O X4 WITH FORGETFULNESS. DENIES NAUSEA, SOB, AND PAIN. ROOM AIR SATTING IN THE LOW TO MID 90'S. PT DENIES SOB AT REST. SINUS ZARA IN THE MID 50'S PER PRINT SHOP MANAGER. BED ALARM ON, CALL LIGHT WITHIN REACH. WILL CONTINUE TO MONITOR.
[2020-12-24 05:07] LABS: BASOPHILS ABSOLUTE AUTO 0.05 K/mm3 (0.00-0.23); BASOPHILS PERCENT AUTO 1 % (0-2); EOSINOPHILS ABSOLUTE AUTO 0.24 K/mm3 (0.00-0.68); EOSINOPHILS PERCENT AUTO 4 % (0-6); Hematocrit 28.2 % (37.0-53.0); Hemoglobin 8.2 g/dL (13.5-17.5); IMMATURE GRAN ABSOLUTE AUTO 0.01 K/mm3 (0.00-0.10); IMMATURE GRAN PERCENT AUTO 0 % (0-1); LYMPHOCYTES ABSOLUTE AUTO 2.29 K/mm3 (0.84-5.20); LYMPHOCYTES PERCENT AUTO 35 % (21-46); MONOCYTES ABSOLUTE AUTO 0.65 K/mm3 (0.16-1.47); MONOCYTES PERCENT AUTO 10 % (4-13); Mean Corpuscular HGB 23.8 pg (26.0-34.0); Mean Corpuscular HGB Conc 29.1 g/dL (31.5-36.5); Mean Corpuscular Volume 82 fL (80-100); Mean Platelet Volume 11.2 fL (9.1-12.4); NEUTROPHILS ABSOLUTE AUTO 3.39 K/mm3 (1.96-9.15); NEUTROPHILS PERCENT AUTO 51 % (41-73); Platelet Count 254 K/mm3 (150-400); RDW Coefficient Variation 17.2 % (11.7-14.2); RDW Standard Deviation 50.5 fL (35.1-46.3); Red Blood Cell Count 3.45 M/mm3 (4.30-5.90); White Blood Cell Count 6.63 K/mm3 (4.00-11.30)
[2020-12-24 05:43] LABS: Bun/Creatinine Ratio 18.9 (12.0-20.0); Calcium, Blood 8.3 mg/dL (8.5-10.1); Creatinine, Blood 1.59 mg/dL (0.60-1.20); Potassium, Blood 3.3 mmol/L (3.5-5.5)
--- NOTE | 2020-12-24 11:49 | NUR ---
echocardiogram completed
[2020-12-24 14:23] LABS: SARS-Cov-2 (COVID-19) PCR, MMC NEGATIVE (NEGATIVE)
--- NOTE | 2020-12-25 04:20 | NUR ---
CORPORATE DIRECTOR OF PHARMACY SUMMARY PT A/O X4. AMBULATES WITH SBA TO THE BATHROOM. SLEPT WELL TONIGHT. DENIES PAIN, NAUSEA. PT DENIES SOB AT REST. DYSPENIC WITH ACTIVITY. ROOM AIR SATTING IN THE MID TO HIGH 90'S. TELE RUNNING SINUS ZARA IN THE LOW 50'S. NO ACUTE CHANGES. CALL LIGHT WITHIN REACH, WILL CONTINUE TO MONITOR.
[2020-12-25 05:16] LABS: BASOPHILS ABSOLUTE AUTO 0.05 K/mm3 (0.00-0.23); BASOPHILS PERCENT AUTO 1 % (0-2); EOSINOPHILS ABSOLUTE AUTO 0.28 K/mm3 (0.00-0.68); EOSINOPHILS PERCENT AUTO 4 % (0-6); Hematocrit 28.2 % (37.0-53.0); Hemoglobin 8.1 g/dL (13.5-17.5); IMMATURE GRAN ABSOLUTE AUTO 0.02 K/mm3 (0.00-0.10); IMMATURE GRAN PERCENT AUTO 0 % (0-1); LYMPHOCYTES ABSOLUTE AUTO 1.94 K/mm3 (0.84-5.20); LYMPHOCYTES PERCENT AUTO 27 % (21-46); MONOCYTES PERCENT AUTO 8 % (4-13); Mean Corpuscular HGB 23.6 pg (26.0-34.0); Mean Corpuscular HGB Conc 28.7 g/dL (31.5-36.5); Mean Corpuscular Volume 82 fL (80-100); Mean Platelet Volume 11.1 fL (9.1-12.4); NEUTROPHILS ABSOLUTE AUTO 4.28 K/mm3 (1.96-9.15); NEUTROPHILS PERCENT AUTO 60 % (41-73); Platelet Count 257 K/mm3 (150-400); RDW Coefficient Variation 17.1 % (11.7-14.2); RDW Standard Deviation 50.7 fL (35.1-46.3); Red Blood Cell Count 3.43 M/mm3 (4.30-5.90); White Blood Cell Count 7.17 K/mm3 (4.00-11.30)
[2020-12-25 05:45] LABS: Albumin, Blood 2.9 g/dL (3.4-5.0); Anion Gap 4 mmol/L (6-16); Blood Urea Nitrogen 29 mg/dL (8-24); Bun/Creatinine Ratio 21.8 (12.0-20.0); CO2, Blood 29 mmol/L (21-32); Calcium, Blood 8.6 mg/dL (8.5-10.1); Chloride, Blood 109 mmol/L (98-108); Creatinine, Blood 1.33 mg/dL (0.60-1.20); Glomerular Filtration Rate 56 (60-); Glucose, Blood 99 mg/dL (70-99); Magnesium, Blood 2.5 mg/dL (1.6-2.4); Phosphorus, Blood 3.5 mg/dL (2.5-4.9); Potassium, Blood 3.8 mmol/L (3.5-5.5); Sodium, Blood 142 mmol/L (136-145); Troponin I <0.015 ng/mL (0.000-0.040)
--- NOTE | 2020-12-25 11:47 | NUR ---
ATRIAL FIBRILLATION WITH HEART 100-110, PER PROOFER PREPRESS. CONVERTED TO A FIB AT 0958. THIS RN NOTIFIED BY PROOFER PREPRESS AT 1030, PO METOPROLOL GIVEN AT THAT TIME. ISTRATE NOTIFIED DURING ROUNDS AT 1140. HEART RATE AT THAT TIME 107. ORDERS FOR CARDIZEM 30 TID, PO PLACED.
--- NOTE | 2020-12-25 11:53 | NUR ---
JAMIN, BRENDA: [phone]
--- NOTE | 2020-12-26 01:35 | NUR ---
0120 TELE REPORTS PAC'S TELE REPORTS PT IS IN SR WITH 1ST DEGREE AND PAC'S IN THE 70'S. NO NOTICE OF PREVIOUS PACS PER VASCULAR PHYSICIAN. PT ASYPTOMATIC AND CONTINUES TO BE ASLEEP. CALL LIGHT WITHIN REACH, WILL CONTINUE TO MONITOR.
[2020-12-26 04:53] LABS: BASOPHILS ABSOLUTE AUTO 0.05 K/mm3 (0.00-0.23); BASOPHILS PERCENT AUTO 1 % (0-2); EOSINOPHILS ABSOLUTE AUTO 0.44 K/mm3 (0.00-0.68); EOSINOPHILS PERCENT AUTO 5 % (0-6); Hematocrit 30.5 % (37.0-53.0); IMMATURE GRAN ABSOLUTE AUTO 0.02 K/mm3 (0.00-0.10); IMMATURE GRAN PERCENT AUTO 0 % (0-1); LYMPHOCYTES ABSOLUTE AUTO 2.12 K/mm3 (0.84-5.20); LYMPHOCYTES PERCENT AUTO 24 % (21-46); MONOCYTES PERCENT AUTO 8 % (4-13); Mean Corpuscular HGB 23.8 pg (26.0-34.0); Mean Corpuscular HGB Conc 29.5 g/dL (31.5-36.5); Mean Corpuscular Volume 81 fL (80-100); Mean Platelet Volume 10.9 fL (9.1-12.4); NEUTROPHILS ABSOLUTE AUTO 5.36 K/mm3 (1.96-9.15); NEUTROPHILS PERCENT AUTO 62 % (41-73); Platelet Count 282 K/mm3 (150-400); RDW Standard Deviation 49.2 fL (35.1-46.3); Red Blood Cell Count 3.78 M/mm3 (4.30-5.90); White Blood Cell Count 8.69 K/mm3 (4.00-11.30)
--- NOTE | 2020-12-26 05:06 | NUR ---
SKATING RINK ICE MAKER SUMMARY PT A/O X4, INDEPENDENT IN THE ROOM. DENIES PAIN, NAUSEA, DIZZINIESS. DENIES SOB AT REST, SOB WITH ACTIVITY. ROOM AIR MAINTAINING GOOD 02 SATS. PT HAD NO COMPLAINTS. PER PROSTHETICS LAB TECHNICIAN PT HAS BEEN CONVERTING BETWEEN A. FIB IN THE 50'S TO 70'S TO BEING SINUS WITH 1ST DEGREE WITH PAC'S. PT HAS SLEPT WELL TONIGHT, ASYOMPTOMATIC. CALL LIGHT WITHIN REACH, WILL CONTINUE TO MONITOR.
[2020-12-26 05:16] LABS: Anion Gap 5 mmol/L (6-16); Blood Urea Nitrogen 28 mg/dL (8-24); Bun/Creatinine Ratio 23.3 (12.0-20.0); CO2, Blood 30 mmol/L (21-32); Calcium, Blood 8.6 mg/dL (8.5-10.1); Chloride, Blood 104 mmol/L (98-108); Glomerular Filtration Rate >60 (60-); Glucose, Blood 93 mg/dL (70-99); Magnesium, Blood 2.3 mg/dL (1.6-2.4); Phosphorus, Blood 3.2 mg/dL (2.5-4.9); Potassium, Blood 3.5 mmol/L (3.5-5.5); Sodium, Blood 139 mmol/L (136-145)
[2020-12-26] MEDS ORDERED: ALBU2.5V5 INH ×2 (11:19)
--- NOTE | 2020-12-26 14:00 | NUR ---
Discharge Summary AOx3, discharging home. Reviewed discharge paperwork with patient, questions answered to their satisfaction. Reviewed paperwork with sister at bedside. Copy given. [facility], patient to pay for a few days worth of Diltiazem from [facility] until [facility] fills script. Personal belongings sent with patient. Escorted by [facility] via w/c.
[2021-01-12] MEDS ORDERED: Bisoprolol Fumar5 MG PO ×2 (16:43)
[2021-01-12] MEDS ORDERED: ATOR40TA PO ×2 (16:44)
[2021-01-12] MEDS ORDERED: Acetaminophen650 M1 PO ×2 (16:45)
[2021-01-12] MEDS ORDERED: CLOP75 PO ×2 (16:48)
[2021-01-12] MEDS ORDERED: GABA400 PO ×2 (16:50)
[2021-01-12] MEDS ORDERED: Isosorbide Mono30 MG PO ×2 (16:51)
[2021-01-12] MEDS ORDERED: HYDHCL25 PO ×2 (16:51)
[2021-01-12] MEDS ORDERED: DILT30 PO ×2 (16:53)
[2021-01-12] MEDS ORDERED: NICODERM CQ1 EA11 TD ×2 (16:55)
[2021-01-12] MEDS ORDERED: POTA10T PO ×2 (16:56)
[2021-01-12] MEDS ORDERED: NITR.4SL SL ×2 (16:56)
[2021-01-12] MEDS ORDERED: SERT50 PO ×2 (16:57)
[2021-01-12] MEDS ORDERED: SPIR25 PO ×2 (16:57)
[2021-01-12] MEDS ORDERED: TAMS.4ER PO ×2 (16:57)
[2021-01-12] MEDS ORDERED: XARELTO20 MG PO ×2 (16:57)
== END 2020-12-26 14:05 | disposition home or self-care (01) ==
LOC: ER 18:10 → MEDS 18:11 → ENPENDDIS 12-26 08:50 → MEDS 12-26 14:05
PROVIDERS: Emergency Medicine; Family Medicine; ADMIT Family Medicine
DX: J96.01 Acute respiratory failure with hypoxia (principal); I13.0 Hypertensive heart and chronic kidney disease with heart failure and stage 1 through stage 4 chronic kidney disease, or unspecified chronic kidney disease; I50.43 Acute on chronic combined systolic (congestive) and diastolic (congestive) heart failure; N18.30 Chronic kidney disease, stage 3 unspecified; Z20.822 Contact with and (suspected) exposure to COVID-19; N17.9 Acute kidney failure, unspecified; F17.210 Nicotine dependence, cigarettes, uncomplicated; E78.5 Hyperlipidemia, unspecified; K21.9 Gastro-esophageal reflux disease without esophagitis; I25.10 Atherosclerotic heart disease of native coronary artery without angina pectoris; I25.2 Old myocardial infarction; I48.20 Chronic atrial fibrillation, unspecified; Z79.01 Long term (current) use of anticoagulants; Z95.5 Presence of coronary angioplasty implant and graft; Z96.653 Presence of artificial knee joint, bilateral; G47.30 Sleep apnea, unspecified; D63.8 Anemia in other chronic diseases classified elsewhere; F41.9 Anxiety disorder, unspecified; F32.9 Major depressive disorder, single episode, unspecified; R79.1 Abnormal coagulation profile
CPT/HCPCS: 36415; 36600; 71046; 71260; 80048; 80053; 80069; 82803; 83735; 83880; 84145; 84443; 84484; 85025; 85379; 93005; 93010; 93308; 93321; 94640; 94760; 96374; 96376; 97162; 97530; 99285-25; A9270; G0378; J1940; J7030; Q9967; U0004

== ENCOUNTER 2021-01-12 12:24 | Inpatient (IN) | payer OTHER ==
[~2021-01-12] VITALS: Ht 180.3 cm; Wt 89.9 kg
[~2021-01-12 12:24] MED LIST changes: +ALBU2.5V5 INH; +ASPI81CH PO
[2021-01-12 13:19] LABS: BASOPHILS ABSOLUTE AUTO 0.04 K/mm3 (0.00-0.23); BASOPHILS PERCENT AUTO 0 % (0-2); EOSINOPHILS ABSOLUTE AUTO 0.03 K/mm3 (0.00-0.68); EOSINOPHILS PERCENT AUTO 0 % (0-6); Hematocrit 29.2 % (37.0-53.0); Hemoglobin 8.5 g/dL (13.5-17.5); IMMATURE GRAN ABSOLUTE AUTO 0.03 K/mm3 (0.00-0.10); IMMATURE GRAN PERCENT AUTO 0 % (0-1); LYMPHOCYTES ABSOLUTE AUTO 1.26 K/mm3 (0.84-5.20); LYMPHOCYTES PERCENT AUTO 13 % (21-46); MONOCYTES ABSOLUTE AUTO 0.69 K/mm3 (0.16-1.47); MONOCYTES PERCENT AUTO 7 % (4-13); Mean Corpuscular HGB 22.7 pg (26.0-34.0); Mean Corpuscular HGB Conc 29.1 g/dL (31.5-36.5); Mean Corpuscular Volume 78 fL (80-100); Mean Platelet Volume 10.6 fL (9.1-12.4); NEUTROPHILS ABSOLUTE AUTO 7.56 K/mm3 (1.96-9.15); NEUTROPHILS PERCENT AUTO 79 % (41-73); NRBC ABSOLUTE 0.02 K/mm3 (0.00-0.02); NRBC Auto 0.2 /100 WBC (0.0-0.2); Platelet Count 292 K/mm3 (150-400); RDW Coefficient Variation 17.8 % (11.7-14.2); RDW Standard Deviation 50.5 fL (35.1-46.3); Red Blood Cell Count 3.74 M/mm3 (4.30-5.90); White Blood Cell Count 9.61 K/mm3 (4.00-11.30)
[2021-01-12 13:38] LABS: Alanine Aminotransfer (ALT/SGP 29 U/L (12-78); Albumin, Blood 2.9 g/dL (3.4-5.0); Albumin/Globulin Ratio 0.7 (0.8-1.8); Alk Phos 127 U/L (50-136); Anion Gap 5 mmol/L (6-16); Aspartate Aminotrans (AST/SGOT 20 U/L (12-37); Bilirubin, Total 0.6 mg/dL (0.1-1.0); Blood Urea Nitrogen 15 mg/dL (8-24); Bun/Creatinine Ratio 12.7 (12.0-20.0); CO2, Blood 25 mmol/L (21-32); Calcium, Blood 8.7 mg/dL (8.5-10.1); Chloride, Blood 107 mmol/L (98-108); Creatinine, Blood 1.18 mg/dL (0.60-1.20); Globulin, Blood 4.3 g/dL (2.2-4.0); Glomerular Filtration Rate 60 (60-); Glucose, Blood 120 mg/dL (70-99); Potassium, Blood 4.1 mmol/L (3.5-5.5); Sodium, Blood 137 mmol/L (136-145); Total Protein, Blood 7.2 g/dL (6.4-8.2); Troponin I <0.015 ng/mL (0.000-0.040)
[2021-01-12] MEDS ORDERED: Bisoprolol Fumar5 MG PO (16:43)
[2021-01-12] MEDS ORDERED: ATOR40TA PO (16:44)
[2021-01-12] MEDS ORDERED: Acetaminophen650 M1 PO (16:45)
[2021-01-12] MEDS ORDERED: ALBU90OI INH (16:45)
[2021-01-12] MEDS ORDERED: BUPRENORPHN-NA1 EAC2 SL (16:47)
[2021-01-12] MEDS ORDERED: CLOP75 PO (16:48)
[2021-01-12] MEDS ORDERED: VITAMIN D325 MC3 PO (16:48)
[2021-01-12] MEDS ORDERED: FURO20 PO (16:50)
[2021-01-12] MEDS ORDERED: GABA400 PO (16:50)
[2021-01-12] MEDS ORDERED: Isosorbide Mono30 MG PO (16:51)
[2021-01-12] MEDS ORDERED: HYDHCL25 PO (16:51)
[2021-01-12] MEDS ORDERED: DILT30 PO (16:53)
[2021-01-12] MEDS ORDERED: NICODERM CQ1 EA11 TD (16:55)
[2021-01-12] MEDS ORDERED: NITR.4SL SL (16:56)
[2021-01-12] MEDS ORDERED: POTA10T PO (16:56)
[2021-01-12] MEDS ORDERED: SERT50 PO (16:57)
[2021-01-12] MEDS ORDERED: XARELTO20 MG PO (16:57)
[2021-01-12] MEDS ORDERED: SPIR25 PO (16:57)
[2021-01-12] MEDS ORDERED: TAMS.4ER PO (16:57)
[2021-01-12] MEDS ORDERED: SPIRIVA RESPIMAT4 G3 INH (16:58)
[2021-01-12] MEDS ORDERED: Nitroglycerin1 EAC3 TD (17:00)
[2021-01-12 18:56] LABS: SARS-Cov-2 (COVID-19) PCR, MMC NEGATIVE (NEGATIVE)
--- NOTE | 2021-01-13 00:02 | NUR ---
PHYSICIAN COMMUNICATION CONCACTED HOOKMAN PHYSICIAN, DR SIBLEY, TO NOTIFY HIM THAT THE PATIENT WAS WANTING SOMETHING TO HELP HIM SLEEP. DR SIBLEY ORDERED 5 MG PO MELATONIN X1.
[2021-01-13 05:05] LABS: BASOPHILS ABSOLUTE AUTO 0.03 K/mm3 (0.00-0.23); BASOPHILS PERCENT AUTO 0 % (0-2); EOSINOPHILS ABSOLUTE AUTO 0.04 K/mm3 (0.00-0.68); EOSINOPHILS PERCENT AUTO 0 % (0-6); Hemoglobin 7.8 g/dL (13.5-17.5); IMMATURE GRAN ABSOLUTE AUTO 0.03 K/mm3 (0.00-0.10); IMMATURE GRAN PERCENT AUTO 0 % (0-1); LYMPHOCYTES ABSOLUTE AUTO 1.79 K/mm3 (0.84-5.20); LYMPHOCYTES PERCENT AUTO 17 % (21-46); MONOCYTES ABSOLUTE AUTO 0.87 K/mm3 (0.16-1.47); MONOCYTES PERCENT AUTO 8 % (4-13); Mean Corpuscular HGB 22.6 pg (26.0-34.0); Mean Corpuscular HGB Conc 28.9 g/dL (31.5-36.5); Mean Corpuscular Volume 78 fL (80-100); Mean Platelet Volume 10.7 fL (9.1-12.4); NEUTROPHILS PERCENT AUTO 74 % (41-73); Platelet Count 269 K/mm3 (150-400); RDW Coefficient Variation 17.9 % (11.7-14.2); RDW Standard Deviation 50.6 fL (35.1-46.3); Red Blood Cell Count 3.45 M/mm3 (4.30-5.90); White Blood Cell Count 10.76 K/mm3 (4.00-11.30)
[2021-01-13 05:27] LABS: Albumin, Blood 2.6 g/dL (3.4-5.0); Albumin/Globulin Ratio 0.7 (0.8-1.8); Bilirubin, Total 0.5 mg/dL (0.1-1.0); Bun/Creatinine Ratio 14.7 (12.0-20.0); Calcium, Blood 8.5 mg/dL (8.5-10.1); Creatinine, Blood 1.29 mg/dL (0.60-1.20); Globulin, Blood 3.9 g/dL (2.2-4.0); Potassium, Blood 4.2 mmol/L (3.5-5.5); Total Protein, Blood 6.5 g/dL (6.4-8.2)
--- NOTE | 2021-01-13 06:46 | NUR ---
SHIFT SUMMARY PATIENT ALERT AND ORIENTED. HAD NO COMPLAINTS OF PAIN. PATIENT IS DYSPNIC UPON EXHERTION. SLEPT WELL OVERNIGHT. IV PATENT AND FLUSHED. BED IN LOWEST POSITION WITH WHEELS LOCKED. CALL LIGHT WITHIN REACH. REPORT GIVEN TO ONCOMING RN.
[2021-01-13] MEDS ORDERED: Aspir 8181 MG PO (11:45)
[2021-01-13] MEDS ORDERED: Bisoprolol Fumar5 MG PO (11:48)
[2021-01-13] MEDS ORDERED: FERSU300 PO (12:09)
[2021-01-13] MEDS ORDERED: HYDHCL25 PO (12:10)
[2021-01-13] MEDS ORDERED: LISI5 PO (12:12)
[2021-01-13] MEDS ORDERED: CHANTIX0.5 MG PO (12:15)
--- NOTE | 2021-01-13 15:07 | NUR ---
SHIFT SUMMARY PT IS A&O, INDEPENDENT IN RM AND TO [facility]. HAS HAD NO COMPLAINTS TO PRESENT. PT ON RA, AFIB PER TELE MX. DR LEIGH IN TO SEE PT THIS AM. REQUESTED [facility] MED LIST FROM RECENT VISIT TO VERIFY MEDICATION CHANGES; OBTAINED REPORTS AND MED LIST AND PLACED ON CHART. NOTIFIED DR LEIGH OF INFORMATION AND UPDATED HOME MED LIST IN CHART. MELATONIN REQUESTED FOR SLEEP AT HS; VERBAL ORDER GIVEN. VSS; SEE CHART. DENIED FURTHER NEEDS TO PRESENT. CALL LT IN REACH.
--- NOTE | 2021-01-14 02:51 | NUR ---
PATIENT HAS BEEN RUNNING A FIB IN THE 60'S AND 70'S MOST OF NIGHT UNTIL APPROX 0200 WHEN SHE HAD TWO CLOSE TOGETHER PAUSES OF 3.9 AND 3.1 SECONDS. PATIENT WAS UNAWARE OF ANY CHANGES OR DID NOT FEEL LIGHTHEADED, SOB, HAVE CP, PRESSURE. RATE RETURNED TI 60'S WITH NO NOTABLE CHANGES IN RHYTHM
[2021-01-14 05:13] LABS: BASOPHILS ABSOLUTE AUTO 0.03 K/mm3 (0.00-0.23); BASOPHILS PERCENT AUTO 0 % (0-2); EOSINOPHILS ABSOLUTE AUTO 0.15 K/mm3 (0.00-0.68); EOSINOPHILS PERCENT AUTO 1 % (0-6); Hematocrit 27.8 % (37.0-53.0); Hemoglobin 8.1 g/dL (13.5-17.5); IMMATURE GRAN ABSOLUTE AUTO 0.05 K/mm3 (0.00-0.10); IMMATURE GRAN PERCENT AUTO 0 % (0-1); LYMPHOCYTES ABSOLUTE AUTO 2.01 K/mm3 (0.84-5.20); LYMPHOCYTES PERCENT AUTO 17 % (21-46); MONOCYTES ABSOLUTE AUTO 1.01 K/mm3 (0.16-1.47); MONOCYTES PERCENT AUTO 9 % (4-13); Mean Corpuscular HGB 22.6 pg (26.0-34.0); Mean Corpuscular HGB Conc 29.1 g/dL (31.5-36.5); Mean Corpuscular Volume 77 fL (80-100); Mean Platelet Volume 10.5 fL (9.1-12.4); NEUTROPHILS ABSOLUTE AUTO 8.58 K/mm3 (1.96-9.15); NEUTROPHILS PERCENT AUTO 73 % (41-73); NRBC ABSOLUTE 0.03 K/mm3 (0.00-0.02); NRBC Auto 0.3 /100 WBC (0.0-0.2); Platelet Count 288 K/mm3 (150-400); RDW Standard Deviation 50.1 fL (35.1-46.3); Red Blood Cell Count 3.59 M/mm3 (4.30-5.90); White Blood Cell Count 11.83 K/mm3 (4.00-11.30)
[2021-01-14 05:42] LABS: Bun/Creatinine Ratio 17.7 (12.0-20.0); Calcium, Blood 8.6 mg/dL (8.5-10.1); Creatinine, Blood 1.3 mg/dL (0.60-1.20); Potassium, Blood 3.9 mmol/L (3.5-5.5)
--- NOTE | 2021-01-14 18:27 | NUR ---
SHIFT SUMMARY PATIENT MEDICATED SCHEDULED FOR CHRONIC BACK PAIN, DENIES NAUSEA, DYSPNEA WITH ACTIVITY. PATIENT MAINTAINING OXYGEN SATURATION ABOVE 92% ON 2-3L/NC. UP INDEPENDENT IN ROOM. VISITOR IN AFTERNOON. PLEASANT AND COOPERATIVE WITH CARE.
[2021-01-15 05:34] LABS: Hematocrit 26.8 % (37.0-53.0); Hemoglobin 7.7 g/dL (13.5-17.5); Mean Corpuscular HGB 22.4 pg (26.0-34.0); Mean Corpuscular HGB Conc 28.7 g/dL (31.5-36.5); Mean Corpuscular Volume 78 fL (80-100); NRBC ABSOLUTE 0.03 K/mm3 (0.00-0.02); NRBC Auto 0.2 /100 WBC (0.0-0.2); Platelet Count 306 K/mm3 (150-400); RDW Coefficient Variation 18.3 % (11.7-14.2); RDW Standard Deviation 51.3 fL (35.1-46.3); Red Blood Cell Count 3.44 M/mm3 (4.30-5.90); White Blood Cell Count 12.38 K/mm3 (4.00-11.30)
[2021-01-15 05:51] LABS: Albumin, Blood 2.3 g/dL (3.4-5.0); Anion Gap 5 mmol/L (6-16); Blood Urea Nitrogen 28 mg/dL (8-24); Bun/Creatinine Ratio 20.9 (12.0-20.0); CO2, Blood 28 mmol/L (21-32); Calcium, Blood 8.3 mg/dL (8.5-10.1); Chloride, Blood 106 mmol/L (98-108); Creatinine, Blood 1.34 mg/dL (0.60-1.20); Glomerular Filtration Rate 52 (60-); Glucose, Blood 98 mg/dL (70-99); Phosphorus, Blood 4.1 mg/dL (2.5-4.9); Potassium, Blood 3.9 mmol/L (3.5-5.5); Sodium, Blood 139 mmol/L (136-145)
--- NOTE | 2021-01-15 09:03 | NUR ---
HS BLOOD PRESSURE MEDS HELD AT 2200 AND MIDNIGHT FOR HYPOTENSIONI. TELEMETRY 110'S A FIB. NO COMPLAINTS OF PAIN. VERY LABORED BREQTHING WITH MINIMAL EXERTION
--- NOTE | 2021-01-15 10:09 | NUR ---
PT C/O CP PT NOTIFIED THIS RN HE WAS EXPERIENCING CP THAT RADIATED T/O CHEST. PAIN WAS DESCRIBED ACHING AT APPROXIMATELY 0940. THIS RN SPOKE WITH DR. LYNNE AT APPROXIMATELY 0945 AND WAS NOTIFIED TO ADMINISTER PT'S 0900 IMDUR AND BUPRENORPHINE TO HELP WITH CP AND RATE. PT IS AFIB 138 ON TELE PER ULTRASONIC TESTER. THIS RN ADMINISTERED PT'S AM MEDICATIONS. THIS RN OKAY'D TO ADMINISTER BP MEDICATIONS AND DIURETICS WITH PT'S BP OF 108/61. PT HAS NITRO PATCH IN PLACE ON CHEST PER EMAR. PT STATES CP HAS RESOLVED. THIS RN WILL CONTINUE TO ASSESS PT STATUS.
--- NOTE | 2021-01-15 13:41 | NUR ---
PT HYPOTENSIVE THIS RN ASSESSED PT'S BP WHICH WAS NOTED TO BE 86/58 AROUND 1200. THIS RN NOTIFIED DR. LYNNE AT APPROXIMATELY 1210 OF PT BP. THIS RN GIVEN ORDERS TO RECHECK BP IN ONE HOUR AND HOLD METOPROLOL DOSE UNTIL BP RECHECKED. THIS RN RECHECKED BP AT 1330 AND BP WAS NOTED TO BE 81/56. DR. LYNNE NOTIFIED AT APPROXIMATELY 1340 AND THIS RN WAS GIVEN ORDERS TO HOLD 1200 METOPROLOL DOSE AND CONTINUE TO MONITOR PT'S BP AND HR. THIS RN WILL CONTINUE TO MONITOR PT STATUS.
[2021-01-15 17:38] LABS: Percent Saturation 5.1 % (20.0-50.0)
--- NOTE | 2021-01-15 18:31 | NUR ---
SHIFT SUMMARY PT IS AOX4. PT DENIES PAIN, N/V, SOB. PT IS INDEPENDENT IN ROOM. PT APPETITE IS GOOD. PT HYPOTENSIVE T/O SHIFT, PHYSICIAN IS AWARE. PT TELE IS AFIB, CURRENTLY 110S, BUT UP TO 130-140S. PT C/O CP THIS AM-SEE NOTE. PT DID NOT HAVE ANY PROCEDURES THIS SHIFT. PT'S SISTER VISITED TODAY. PT IS IN BED, CALL LIGHT IN REACH, LOW POSITION.
[2021-01-16 05:20] LABS: Albumin, Blood 2.2 g/dL (3.4-5.0); Anion Gap 4 mmol/L (6-16); Blood Urea Nitrogen 30 mg/dL (8-24); Bun/Creatinine Ratio 23.4 (12.0-20.0); CO2, Blood 26 mmol/L (21-32); Calcium, Blood 8.3 mg/dL (8.5-10.1); Chloride, Blood 107 mmol/L (98-108); Creatinine, Blood 1.28 mg/dL (0.60-1.20); Glomerular Filtration Rate 55 (60-); Glucose, Blood 160 mg/dL (70-99); Phosphorus, Blood 3.2 mg/dL (2.5-4.9); Potassium, Blood 3.8 mmol/L (3.5-5.5); Sodium, Blood 137 mmol/L (136-145)
--- NOTE | 2021-01-16 07:16 | NUR ---
PATIENT CONTINUES TO HAVE VERY LABORED RESPIRATIONS WHETHER AWAKE OR ASLEEP. HE IS SAFELY INDEPENDENT TO BATHROOM, BUT WITH EVEN THE MOST MINISCULE MOVEMENT SUCH SITTING UP IN BED, HIS HR GOES BRIEFLY INTO THE 140'S TO 150'S WITH A REASONABLY QUICK RECOVERY INTO THE 110-120 RANGE OF ATRIAL FIB.
--- NOTE | 2021-01-16 18:56 | NUR ---
a+o, but still having trouble breathing, 02 level staying in 90's but pattern is rough, trouble getting tele to work well changed lines, box and stickers multiple times even had a rep from tele come up to demonstrate but nothing seemed to change the connection, call light in reach, saline locked, on 2L via nc, will continue to monitor and treat until share bsr with noc nurse and pt
--- NOTE | 2021-01-16 23:54 | NUR ---
PHYSICIAN CONTACT TRAVEL TRAILER COMPONENTS ASSEMBLER PROVIDER NOTIFIED OF HYPOTENSION, SYSTOLIC IN THE 80S. 0000 METOPROLOL HELD. WILL CONTINUE TO MONITOR.
--- NOTE | 2021-01-17 03:32 | NUR ---
SHIFT SUMMARY A/OX3, SBA TO BATHROOM. DYSPNEA NOTED ON EXERTION. PT PLACED ON CPAP, CONT. BIOX IN PLACE WITH SATS GREATER THAN 90. PT SLEPT T/O THE NIGHT. CONTINUES TO BE HYPOTENSIVE WITH SYSTOLIC IN THE 80S. FIBER DESIGN ENGINEER PROVIDER AWARE, BP MEDICATIONS HELD THIS SHIFT. TELE RUNNING AFIB AVG 90'S. BED IN LOWEST POSITION WITH CALL LIGHT IN REACH. WILL CONTINUE TO MONITOR AND REPORT TO ONCOMING RN.
[2021-01-17 08:09] LABS: Hematocrit 25.3 % (37.0-53.0); Hemoglobin 7.3 g/dL (13.5-17.5); Mean Corpuscular HGB 22.5 pg (26.0-34.0); Mean Corpuscular HGB Conc 28.9 g/dL (31.5-36.5); Mean Corpuscular Volume 78 fL (80-100); Mean Platelet Volume 10.7 fL (9.1-12.4); NRBC ABSOLUTE 0.03 K/mm3 (0.00-0.02); NRBC Auto 0.2 /100 WBC (0.0-0.2); Platelet Count 333 K/mm3 (150-400); RDW Coefficient Variation 18.4 % (11.7-14.2); RDW Standard Deviation 51.3 fL (35.1-46.3); Red Blood Cell Count 3.25 M/mm3 (4.30-5.90); White Blood Cell Count 13.19 K/mm3 (4.00-11.30)
[2021-01-17 08:38] LABS: Albumin, Blood 2.1 g/dL (3.4-5.0); Anion Gap 8 mmol/L (6-16); Blood Urea Nitrogen 42 mg/dL (8-24); Bun/Creatinine Ratio 27.8 (12.0-20.0); CO2, Blood 26 mmol/L (21-32); Calcium, Blood 8.6 mg/dL (8.5-10.1); Chloride, Blood 106 mmol/L (98-108); Creatinine, Blood 1.51 mg/dL (0.60-1.20); Glomerular Filtration Rate 45 (60-); Glucose, Blood 94 mg/dL (70-99); Phosphorus, Blood 4.4 mg/dL (2.5-4.9); Potassium, Blood 4.1 mmol/L (3.5-5.5); Sodium, Blood 140 mmol/L (136-145)
[2021-01-17 09:51] LABS: PCO2 Arterial 42.7 mmHg (35-45); PO2 Arterial 76.4 mmHg (80-100); pH Blood Arterial 7.37 (7.35-7.45)
--- NOTE | 2021-01-17 11:00 | NUR ---
PT TRANSFERRED TO ICU AT THIS TIME, ASSUMED CARE CALL TO PT FAMILY MEMBER TO UPDATE. PT. ALERT AND ORIENTED UPON ARRIVL TO ICU. PT. DENIES PAIN OR FEELING OF SOB UPON ARRIVAL. PALE IN COLOR. PT. 95% ON 4LNC UPON ARRIVAL. PLACED ON BIPAP BY RT. CURRENT SETTINGS 06/05, 35%. PT TOLERATING WELL. PT. IN AFIB UPON ARRIVAL, HR 110. BP 85/52 (MAP 68). EXTREM WARM. PT. DENIES CHEST PAIN/ PRESSURE. ABD DISTENDED BUT SOFT, HYPERACTIVE BT. PT STATES NORMAL. PLACED ON ACCOUNTANT AUDITOR UPON ARRIVAL. CALL LIGHT IN REACH. PT. INSTRUCTED TO CALL FOR HELP PRIOR TO GETTING OOB DUE TO CORDS/ LINES. BED IN LOW POSITION, CALL LIGHT IN REACH, BED ALARM ON FOR SAFETY.
--- NOTE | 2021-01-17 11:41 | NUR ---
ABNORMAL BREATHING PATTERN PT. NOTED TO HOLD BREATH AND THEN TAKE BIG BREATHS. PT. NOTED TO HAVE DIPS IN SPO2 THEN RECOVER TO 91-93%. PT REPORTS THAT THIS IS NORMAL FOR HIM. HE STATES "I DO THIS AT HOME, ILL BE WATCHING TV THEN REALIZE I HAVENT BEEN BREATHING". PT. ALSO REPORTS HYPOTENSION AT HOME WELL PT REPORTS HIS BLOOD PRESSURE IS "130/80 DOWN TO 80/50" AT HOME AND REPORTS THAT THE LOWEST AT HOME HAS SEEN WAS 60/40. WHEN ASKED IF HE GETS DIZZY OR SYMPTOMATIC WITH THESE LOW BLOOD PRESSURES HE STATES" NO, I FEEL GREAT".
--- NOTE | 2021-01-17 12:40 | NUR ---
NEW PERIPHERAL IV PLACED VIA ULTRASOUND, POSITIVE BLOOD RETURN. LOW DOSE PERIPHERAL LEVOPHED GTT STARTED. PT CONITNUES WITH VANDANA-GONZALEZ STYLE BREATHING PATTERN, PLACED ON BIPAP WHILE PT. SLEEPING. CALL LIGHT IN REACH.
--- NOTE | 2021-01-17 13:51 | NUR ---
Met pt. lying in bed and in vent prayed for the pt.
--- NOTE | 2021-01-17 15:30 | NUR ---
ASSUMED CARE: REPORT RECIEVED FROM JULIANE JAIMES. PT WAS ON 3L O2 BUT STARTED DESATURATING SO BIPAP WAS REPLACED AT 1502 WITH SETTINGS 12/6 AND 35% FIO2 LEVOPHED RUNNING AT 3MCG/MIN. SITE RUNNING WITH NO SIGN OF INFILTRATION OR C/O PAIN. AT BEDSIDE.
--- NOTE | 2021-01-17 15:34 | NUR ---
report to [facility]
--- NOTE | 2021-01-17 16:30 | NUR ---
LEVOPHED SITE NOTED WITH SKIN TO BE RAISED NEXT TO PUNCTURE SITE. NO BLOOD RETURN AND FLUSH COORELATES WITH RAISED SKIN. PT STATES NO C/O PAIN. IV DC'D. RN AT BEDSIDE PLACING POWERGLIDE IN RIGHT ARM. LEVOPHED OFF AT THIS TIME AND UNIT OF BLOOD RUNNING PER ORDERS. PT DENIES NEEDS OR CONCERNS. BIPAP IN PLACE WITH SETTINGS 12/6 WITH 35% FIO2.
--- NOTE | 2021-01-17 18:01 | NUR ---
SHIFT SUMMARY: TOOK PT OFF BIPAP FOR BREAK AND HE BECAME TACHYPNEIC WITH DESATURATIONS INTO THE 80S. BIPAP RETURNED. SETTINGS 06/05 WITH FIO2 AT 35%. LEVOPHED OFF. SITE WITH NO RAISED AREAS AND TISSUES HAS FIRMNESS OF MUSCLE TISSUE. 1 UNIT PRBCS RUNNING AT THIS TIME. VSS. NO ACUTE NEEDS OR CONCERNS AT THIS TIME.
--- NOTE | 2021-01-17 21:30 | NUR ---
ASSUMED CARE REPORT RECEIVED FROM VIRGINIA JAIMES. PT RESTING IN BED, EASILY AWAKENS WITH VERBAL STIMULI. PT ALERT AND ORIENTED, FOLLOWS COMMANDS. DENIES PAIN AT THIS TIME. ON BIPAP. SETTINGS / 45% FIO2. STATES HE IS FEELING BETTER. AFIB ON MONITOR, HR 100-130'S, SBP 120'S, SPO2 96%. CURRENTLY SALINE LOCKED, LEVO ON STANDBY. PT TAKING SIPS OF WATER WITHOUT ISSUE, SATS REMAIN >92% WHEN BIPAP MASK REMOVED FOR BRIEF PERIODS OF TIME.
--- NOTE | 2021-01-17 21:51 | NUR ---
TRANSFER OF CARE CARE RELINQUISHED AT 2140. PT AXO. ON BIPAP, WITH EXERTIONAL DYSPNEA. PT DOES TOELRATE 4.5LNC BREAKS FOR AROUND 2-3 MIN BEFORE REQUIRING BIPAP AGAIN. PT HAD EPISODE OF INCONTINENCE, PT CLEANED AND BED FITTED WITH NEW SHEETS. ORAL CARE PROVIDED. 1U PRBC INFUSING AT START OF SHIFT, FINISHED. PT TOELRATEDWELL. HR TRENDING AROUND 120'S BUT DOES TREND UP TO 140'S WITH EXERTION AT TIMES, AFIB. OTHERWISE, PT RESTING COMFORTABLY AFTER MEDS.
--- NOTE | 2021-01-17 23:25 | NUR ---
DR LEIGH CONTACTED REGARDING PT'S HR SUSTAINING 120-130'S. NEW ORDER PLACED FOR PRN PO METOPROLOL TARTRATE.
[2021-01-18 04:40] LABS: BASOPHILS ABSOLUTE AUTO 0.03 K/mm3 (0.00-0.23); BASOPHILS PERCENT AUTO 0 % (0-2); EOSINOPHILS ABSOLUTE AUTO 0.32 K/mm3 (0.00-0.68); EOSINOPHILS PERCENT AUTO 3 % (0-6); Hematocrit 26.1 % (37.0-53.0); Hemoglobin 7.8 g/dL (13.5-17.5); IMMATURE GRAN ABSOLUTE AUTO 0.06 K/mm3 (0.00-0.10); IMMATURE GRAN PERCENT AUTO 1 % (0-1); LYMPHOCYTES ABSOLUTE AUTO 0.88 K/mm3 (0.84-5.20); LYMPHOCYTES PERCENT AUTO 7 % (21-46); MONOCYTES PERCENT AUTO 6 % (4-13); Mean Corpuscular HGB 23.3 pg (26.0-34.0); Mean Corpuscular HGB Conc 29.9 g/dL (31.5-36.5); Mean Corpuscular Volume 78 fL (80-100); Mean Platelet Volume 10.3 fL (9.1-12.4); NEUTROPHILS ABSOLUTE AUTO 9.96 K/mm3 (1.96-9.15); NEUTROPHILS PERCENT AUTO 83 % (41-73); NRBC ABSOLUTE 0.05 K/mm3 (0.00-0.02); NRBC Auto 0.4 /100 WBC (0.0-0.2); Platelet Count 324 K/mm3 (150-400); RDW Coefficient Variation 18.7 % (11.7-14.2); RDW Standard Deviation 52.1 fL (35.1-46.3); Red Blood Cell Count 3.35 M/mm3 (4.30-5.90); White Blood Cell Count 11.95 K/mm3 (4.00-11.30)
[2021-01-18 05:01] LABS: Albumin, Blood 1.9 g/dL (3.4-5.0); Anion Gap 4 mmol/L (6-16); Blood Urea Nitrogen 35 mg/dL (8-24); Bun/Creatinine Ratio 24.3 (12.0-20.0); CO2, Blood 27 mmol/L (21-32); Calcium, Blood 8.3 mg/dL (8.5-10.1); Chloride, Blood 106 mmol/L (98-108); Creatinine, Blood 1.44 mg/dL (0.60-1.20); Glomerular Filtration Rate 48 (60-); Glucose, Blood 110 mg/dL (70-99); Magnesium, Blood 2.5 mg/dL (1.6-2.4); Phosphorus, Blood 4.5 mg/dL (2.5-4.9); Sodium, Blood 137 mmol/L (136-145)
--- NOTE | 2021-01-18 05:45 | NUR ---
SHIFT SUMMARY PT REMAINS ON BIPAP, TOLERATES BREAKS FOR 1-2 MINUTES BEFORE SATS DROP INTO LOW 80'S. BIPAP SETTINGS CONTINUE AT 12/6 45%. PT ALERT AND ORIENTED, FOLLOWING COMMANDS. DENIES PAIN T/O SHIFT. AFIB ON MONITOR 90-115'S WITH OCCASSIONAL INCREASES TO 130'S. PRN LOPRESSOR GIVEN ONCE THIS SHIFT. BP SOFT T/O SHIFT, SBP 90-100'S WITH MAP REMAINING >65. LEVOPHED ON STANDBY ALL SHIFT. PT CURRENTLY SALINE LOCKED. CONDOM CATH APPLIED THIS SHIFT, PT TOLERATING WELL.
--- NOTE | 2021-01-18 07:04 | NUR ---
ASSUMED CARE: PT RESTING QUIETLY WITH BIPAP IN PLACE, SETTINGS 12/6 AT 45%. NIGHT RN REPORTS PT BEING UNABLE TO TOLERATE BREAKS FOR MORE THAN A FEW MINUTES. LEVOPHED REMAINS OFF. OLD LEVOPHED SITE FEELS AND APPEARS NORMAL AT THIS TIME. NO ACUTE NEEDS OR CONCERNS NOTED.
--- NOTE | 2021-01-18 14:53 | NUR ---
CALL TO DR LYNNE TO MAKE HER AWARE THAT AFTERNOON METOPROLOL DOSE WAS HELD DUE TO HYPOTENSION. MIDODRINE WAS GIVEN AND HR WAS IN 1TEENS AT THAT TIME. SPOKE TO DR LYNNE AGAIN AT 1450 DUE TO PT'S HR STARTING TO TREND IN 130S-140S WITH BPS WITH MAPS OF 67 AND SYSTOLICS IN THE 90S. ALSO NOTIFIED THAT HE IS VERY BIPAP DEPENDENT AND ONLY TOLERATING SHORT BREAKS OFF BIPAP AND FIO2 HAS BEEN INCREASED TO 55%. PT'S SISTER ASKED ABOUT PULMONOLOGY AND CARDIOLOGY CONSULTS AND MADE HER AWARE THAT HOSPITALIST MANAGES AND REQUESTS WHEN UNABLE TO MANAGE FURTHER. AWARE OF THIS CONVERSATION AND PLACING FURTHER ORDERS
--- NOTE | 2021-01-18 14:54 | NUR ---
Echocardiogram completed.
[2021-01-18 18:20] LABS: PCO2 Arterial 45.3 mmHg (35-45); PO2 Arterial 73.6 mmHg (80-100); pH Blood Arterial 7.38 (7.35-7.45)
--- NOTE | 2021-01-18 18:43 | NUR ---
PT WAS GIVEN BREAK FROM BIPAP FOR MEDS AND WAS NOTED TO BE TWITCHING. CALL TO DR LYNNE TO GIVE UPDATE AND DR ORDERED STAT ABG. ABG WORSE THAN PREVIOUS BUT PT IS STILL COMPENSATING. ORDERS FOR AM LABS AND XRAY. DR STATES THAT IF XRAY OR STATUS SHOWS WORSENING IN AM, MAY ORDER PULM OR CARDIAC CONSULTS. PT CURRENTLY ON 65% FIO2 AND SETTINGS /. DR AWARE THAT FIO2 DEMAND HAS BEEN INCREASING. HR 112 IN AFIB AT THIS TIME.
--- NOTE | 2021-01-18 19:20 | NUR ---
ASSUMED CARE REPORT RECEIVED FROM YARI JAIMES. PT RESTING IN BED, OPENS EYES TO SOUND. PT DENIES PAIN AT THIS TIME. CONDOM CATH IN PLACE DRAINING TO GRAVITY. BIPAP ON, SETTINGS 12/6 65%, PT NOT TOLERATING BREAKS FROM MASK SATS DROP TO LOW 80'S. PT IS ALERT AND ORIENTED, FOLLOWS COMMANDS, HELPS WITH REPOSITIONING. HR 115-120'S AFIB ON MONITOR, SBP 90'S, SPO2 MAINTAINING >90%.
--- NOTE | 2021-01-19 00:30 | NUR ---
DR SIBLEY NOTIFIED REGARDING PT'S HR 130-150'S. ONE TIME DOSE OF LOPRESSOR 5MG IV ORDERED.
[2021-01-19 04:42] LABS: BASOPHILS ABSOLUTE AUTO 0.04 K/mm3 (0.00-0.23); BASOPHILS PERCENT AUTO 0 % (0-2); EOSINOPHILS ABSOLUTE AUTO 0.19 K/mm3 (0.00-0.68); EOSINOPHILS PERCENT AUTO 2 % (0-6); Hematocrit 26.4 % (37.0-53.0); Hemoglobin 7.9 g/dL (13.5-17.5); IMMATURE GRAN ABSOLUTE AUTO 0.08 K/mm3 (0.00-0.10); IMMATURE GRAN PERCENT AUTO 1 % (0-1); LYMPHOCYTES ABSOLUTE AUTO 0.76 K/mm3 (0.84-5.20); LYMPHOCYTES PERCENT AUTO 6 % (21-46); MONOCYTES ABSOLUTE AUTO 0.64 K/mm3 (0.16-1.47); MONOCYTES PERCENT AUTO 5 % (4-13); Mean Corpuscular HGB 23.7 pg (26.0-34.0); Mean Corpuscular HGB Conc 29.9 g/dL (31.5-36.5); Mean Corpuscular Volume 79 fL (80-100); Mean Platelet Volume 10.4 fL (9.1-12.4); NEUTROPHILS ABSOLUTE AUTO 10.27 K/mm3 (1.96-9.15); NEUTROPHILS PERCENT AUTO 86 % (41-73); Platelet Count 351 K/mm3 (150-400); RDW Coefficient Variation 19.7 % (11.7-14.2); RDW Standard Deviation 54.4 fL (35.1-46.3); Red Blood Cell Count 3.34 M/mm3 (4.30-5.90); White Blood Cell Count 11.98 K/mm3 (4.00-11.30)
[2021-01-19 05:22] LABS: PCO2 Arterial 44.4 mmHg (35-45); PO2 Arterial 78.6 mmHg (80-100); pH Blood Arterial 7.41 (7.35-7.45)
[2021-01-19 05:47] LABS: Albumin, Blood 1.7 g/dL (3.4-5.0); Anion Gap 6 mmol/L (6-16); Blood Urea Nitrogen 32 mg/dL (8-24); CO2, Blood 27 mmol/L (21-32); Calcium, Blood 8.4 mg/dL (8.5-10.1); Chloride, Blood 106 mmol/L (98-108); Creatinine, Blood 1.39 mg/dL (0.60-1.20); Digoxin (Lanoxin) 1.74 ug/mL (0.80-2.00); Glomerular Filtration Rate 50 (60-); Glucose, Blood 115 mg/dL (70-99); Phosphorus, Blood 3.9 mg/dL (2.5-4.9); Potassium, Blood 3.8 mmol/L (3.5-5.5); Sodium, Blood 139 mmol/L (136-145)
--- NOTE | 2021-01-19 06:12 | NUR ---
SHIFT SUMMARY PT SLEPT MAJORITY OF NIGHT, EASILY AWAKENS TO VERBAL STIMULI. SCHEDULED METOPROLOL HELD THIS SHIFT DUE TO SOFT BP'S. DIGOXIN GIVEN TWICE THIS SHIFT, HR CURRENTLY 80-115'S. SBP 90-100'S, PRN MIDODRINE GIVEN ONCE THIS SHIFT. DR SIBLEY NOTIFIED THIS SHIFT REGARDING HR 130-150'S PRN DOSE OF METOPROLOL GIVEN WITH MINIMAL EFFECT. CONDOM CATH IN PLACE. PT NOTED TO HAVE SHAKING TO LUE, ALSO HAS LESS MOVEMENT TO LUE COMPARED TO RUE. PT DENIES PAIN T/O SHIFT. ALSO DENIES SOB. PT ABLE TO HELP WITH REPOSITIONING. ORAL CARE DONE USING SUCTION SWABS. PT NOT TOLERATING BREAKS FROM BIPAP FOR MORE THAN 1-2 MINUTES AT A TIME, SATS DROP TO LOW 80'S. BIPAP SETTINGS 06/05 50%. WILL CONTINUE TO MONITOR UNTIL REPORT GIVEN TO ONCOMING RN.
--- NOTE | 2021-01-19 07:15 | NUR ---
Assumed care of pt at 0700. Bedside report received from Cinthya JAIMES. Pt A&O x 4. Answers questions. Follows commands. Verbalizes needs. Pleasant and cooperative with care. Pt on BiPAP with 12/6 and 50% FiO2. SpO2 90% or greater. Lungs clear t/o. Atrial fibrillation per monitor with rate ranging from 100-110. BP stable. Condom catheter in place.
--- NOTE | 2021-01-19 09:45 | NUR ---
Pt given break from BiPAP for AM medications. Pt did not tolerate well. Required 15 LPM oxymizer. While relaxed in bed, SpO2 mid 80s. Stong pleth. Pt able to increase SpO2 to low 90s when he was instructed to take deep breaths through his nose but was not able to maintain this for more than a minute or two. After medications, oral care offered. Pt had this RN do oral care as he felt too lethargic. Updated Dr Antunez on pt's poor tolerance off BiPAP. Requested space controller consult. Provider states plan to review chart and enter orders.
--- NOTE | 2021-01-19 13:00 | NUR ---
Dr Escobedo in to see patient. Plan to obtain another COVID 19 swab. Plan to continue with BiPAP.
[2021-01-19 15:29] LABS: SARS-Cov-2 (COVID-19) PCR, MMC NEGATIVE (NEGATIVE)
--- NOTE | 2021-01-19 15:52 | NUR ---
Met erma liao and his sister. Pt slept through most of conversation. Pt sister wanted updates review of echo note and physician notes with pt. She states he still lives with them and her daughter does all of his medications. We reviewed his change in his EF and that a unit control worker is now seeing him. We reviewed his old advance directive from 2013. Pt sister is very interested in updating his advance directive. we reviewed levels of care she believes he would not want cpr maybe go on a vent but not sure. She asked that We discusse code status with him tomorrow when his daughter comes in to visit. Will look at how his labs are and how he prgresses. He is declining if his EF or pulmonary status worsens may need to discuss hospice.
--- NOTE | 2021-01-19 18:58 | NUR ---
SUMMARY No acute changes t/o shift. Pt has been BiPAP dependent all day. Breaks given for oral care and PO meds. Maximum break was 15 minutes, this morning. When pt received PO xarelto this evening, break was less than five minutes as his SpO2 dropped to high 70s. Meals withheld due to aspiration risk with high oxygen demand and respiratory failure. Pt tolerates BIPAP well, does not self-remove it or provide any complaint regarding mask. Atrial fibrillation, rate 95-100. BP stable. Pt has condom catheter in place, excellent urine output. Will continue to closely monitor until care handoff and bedside report with oncoming RN.
[2021-01-19 19:46] LABS: Adenovirus Not Detected (NOT DETECT); Bordetella pertussis Not Detected (NOT DETECT); Chlamydophila pneumoniae Not Detected (NOT DETECT); Coronavirus 229E Not Detected (NOT DETECT); Coronavirus HKU1 Not Detected (NOT DETECT); Coronavirus NL63 Not Detected (NOT DETECT); Coronavirus OC43 Not Detected (NOT DETECT); Human Metapneumovirus Not Detected (NOT DETECT); Human Rhinovirus/Enterovirus Not Detected (NOT DETECT); Influenza A/2009-H1 Not Detected (NOT DETECT); Influenza A/H1 Not Detected (NOT DETECT); Influenza A/H3 Not Detected (NOT DETECT); Influenza B Not Detected (NOT DETECT); Mycoplasma pneumoniae Not Detected (NOT DETECT); Parainfluenza Virus 1 Not Detected (NOT DETECT); Parainfluenza Virus 2 Not Detected (NOT DETECT); Parainfluenza Virus 3 Not Detected (NOT DETECT); Parainfluenza Virus 4 Not Detected (NOT DETECT); Respiratory Syncytial Virus Not Detected (NOT DETECT); SARS-Cov-2 (COVID-19), BioFire Not Detected (NOT DETECT)
--- NOTE | 2021-01-20 05:49 | NUR ---
PATIENT ALERT AND ORIENTATED THIS SHIFT, ABLE TO MAKE NEEDS KNOWN, ANXIOUS BUT FOLLOWS COMMANDS, USES CALL LIGHT, AND CALL LIGHT WTTHIN REACH, PATIENT HAD 1 X BM SMALL BROWN USING THE BEDSIDE COMMODE 2 PAC, PATIENT RECEIVED NEW ORDERS NPO WITH MEDS AND SIPS IF PATIENT CAN TOLERATE KEEPING SATURATIONS ABOVER 90%, PATIENT WAS ABLE TO TOLERATE MEDICATIONS THIS EVENING. PATIENT SLEPT THROUGHOUT THE NIGHT WAKING FOR ASSESSMENTS, AND RESPIRATORY. VITAL SIGNS REMAINED STABLE, BEGINNING OF SHIFT PATIENT HAD AN INCREASE FROM FIO2 50% TO 65% AT THE END OF THE SHIFT FIO2 IS AT 45% MAINTAINING 12/8.
[2021-01-20 06:39] LABS: Hematocrit 28.5 % (37.0-53.0); Hemoglobin 8.3 g/dL (13.5-17.5); Mean Corpuscular HGB 23.3 pg (26.0-34.0); Mean Corpuscular HGB Conc 29.1 g/dL (31.5-36.5); Mean Corpuscular Volume 80 fL (80-100); Mean Platelet Volume 10.3 fL (9.1-12.4); Platelet Count 403 K/mm3 (150-400); RDW Coefficient Variation 20.8 % (11.7-14.2); RDW Standard Deviation 57.4 fL (35.1-46.3); Red Blood Cell Count 3.56 M/mm3 (4.30-5.90); White Blood Cell Count 11.29 K/mm3 (4.00-11.30)
[2021-01-20 06:59] LABS: Albumin, Blood 1.7 g/dL (3.4-5.0); Anion Gap 5 mmol/L (6-16); Blood Urea Nitrogen 29 mg/dL (8-24); Bun/Creatinine Ratio 24.8 (12.0-20.0); CO2, Blood 31 mmol/L (21-32); Calcium, Blood 8.8 mg/dL (8.5-10.1); Chloride, Blood 108 mmol/L (98-108); Creatinine, Blood 1.17 mg/dL (0.60-1.20); Glomerular Filtration Rate >60 (60-); Glucose, Blood 96 mg/dL (70-99); Phosphorus, Blood 3.5 mg/dL (2.5-4.9); Potassium, Blood 3.6 mmol/L (3.5-5.5); Sodium, Blood 144 mmol/L (136-145)
--- NOTE | 2021-01-20 07:15 | NUR ---
Assumed care of pt at 0715. Bedside report received from Ruth JAIMES. Pt A&O x 4. Answers questions. Follows commands. Verbalizes needs. Pleasant and cooperative with care. Pt on BiPAP 14/8 and 45% FiO2. Afib per monitor. BP stable. Condom catheter in place, draining clear, yellow urine.
[2021-01-20 08:11] LABS: COMPLEMENT C3, SERUM 157 mg/dL (82-167); COMPLEMENT C4, SERUM 27 mg/dL (12-38)
--- NOTE | 2021-01-20 12:00 | NUR ---
Pt on V60 high flow therapy with 55 LPM. Initially at 50% FiO2 but now at 60% FiO2. SpO2 90% or greater. Pt was able to stand up and mobilize to chair with help from therapy. Pt tolerated activity well. Pt agreeable to staying in chair for this afternoon.
--- NOTE | 2021-01-20 15:50 | NUR ---
pt daughter at bedside. We reviewed his care needs and potential future needs and suggested we need to make some shelter plans for care. Review of advance directive , polst and code status and intubation. They are going to discuss his needs. Gave daughter hard choices for loving family. Will follow up tomorrow.
--- NOTE | 2021-01-20 17:08 | NUR ---
SUMMARY At this time, pt is on V60 high flow therapy with 55 LPM and 70% FiO2. SpO2 90% or greater. Pt remains in chair but plan to mobilize back to bed before shift is over. Atrial fibrillation per monitor, avg rate 105. BP stable. Digoxin added to medication regimen. Pt visiting with daughter at bedside. Will continue to closely monitor until care handoff and bedside report with oncoming RN.
[2021-01-20 18:09] LABS: ANTI-DSDNA ANTIBODIES 1 IU/mL (0-9); RNP ANTIBODIES 0.2 AI (0.0-0.9); SJOGREN'S ANTI-SS-A <0.2 AI (0.0-0.9); SJOGREN'S ANTI-SS-B <0.2 AI (0.0-0.9); SMITH ANTIBODIES <0.2 AI (0.0-0.9)
[2021-01-21 03:52] LABS: Hematocrit 28.9 % (37.0-53.0); Hemoglobin 8.3 g/dL (13.5-17.5); Mean Corpuscular HGB 23.1 pg (26.0-34.0); Mean Corpuscular HGB Conc 28.7 g/dL (31.5-36.5); Mean Corpuscular Volume 80 fL (80-100); Mean Platelet Volume 10.4 fL (9.1-12.4); NRBC ABSOLUTE 0.02 K/mm3 (0.00-0.02); NRBC Auto 0.2 /100 WBC (0.0-0.2); Platelet Count 411 K/mm3 (150-400); RDW Coefficient Variation 21.2 % (11.7-14.2); RDW Standard Deviation 59.9 fL (35.1-46.3); White Blood Cell Count 12.34 K/mm3 (4.00-11.30)
[2021-01-21 04:19] LABS: Albumin, Blood 1.7 g/dL (3.4-5.0); Albumin/Globulin Ratio 0.4 (0.8-1.8); Bilirubin, Total 0.5 mg/dL (0.1-1.0); Bun/Creatinine Ratio 23.5 (12.0-20.0); Calcium, Blood 8.5 mg/dL (8.5-10.1); Creatinine, Blood 1.19 mg/dL (0.60-1.20); Globulin, Blood 4.6 g/dL (2.2-4.0); Magnesium, Blood 2.2 mg/dL (1.6-2.4); Percent Saturation 15.3 % (20.0-50.0); Potassium, Blood 3.1 mmol/L (3.5-5.5); Thyroid Stimulating Hormone 1.84 uIU/mL (0.360-4.800); Total Protein, Blood 6.3 g/dL (6.4-8.2)
[2021-01-21 04:43] LABS: Phosphorus, Blood 3.4 mg/dL (2.5-4.9)
--- NOTE | 2021-01-21 05:57 | NUR ---
PATIENT IS LETHARGIC THROUGHOUT ENTIRE SHIFT, AWOKEN EASILY TO VOICE ON ON HIGH FLOW NC TONIGHT 55LPM AND 85% FIO2, CONDOM CATH REPLACED AND DRAINING DARK CLOUDY URINE, NO C/O OF PAIN, PATIENT ATE 5% OF DINNER AND WAS ABLE TO TAKE HIS MEDICATIONS 1-2 PILLS AT A TIME WITH ASSISTANCE, QUEING AND BREAKS INBETWEEN. POTASSIUM WAS 3.1 THIS AM, ELECTROLYTE PROTOCOL WAS FOLLOWED AND SUPPLIMENT POTASSIUM WAS ORDERED AND STARTED. PATIENT HAD MIDORINE X 1 TO KEEP MAP WITHIN 60 PER ORDER, PATIENT BLOOD PRESSURES SOFT MAP> 60 THROUGHOUT SHIFT, HEART RATE 106-123 AFIB, RR 17-21 AND O2 SATURATIONS MAINTAINING 89-93%.
--- NOTE | 2021-01-21 09:17 | NUR ---
AM NOTE PT A&O TO PERSON, PLACE AND TIME. FOLLOWING DIRECTIONS. MAKING NEEDS KNOWN. 2 PERSON ASSIST UP TO CHAIR. PT SOB WITH EXERTION; ON AIRVO AT 55L FIO2 85%; LS COARSE T/O; SPO2 >90%. BREATHING EVEN AND UNLABORED. AFIB 100'S, BP STABLE MAP >60. BOWEL TONES HYPOACTIVE x4 QUAD; DISTENDED, FIRM AND TENDER. PT HAS LOOSE/LIQUID BM THIS AM. UP 2 PERSON ASSIST TO BSC, THEN IN CHAIR FOR BREAKFAST. OTHER VSS. NO OTHER ACUTE CHANGES; WILL CONTINUE TO MONITOR.
--- NOTE | 2021-01-21 10:28 | NUR ---
Met with Anuel this morning in his room. He is awake and alert this morning. He reports that sometimes he isn't sure what day it is or the time of day. He remains on the airvo at 55 liters and states that his breathing is starting to feel better. He states his dtr is planning on visiting this afternoon. Offered to return to his room when his dtr visits to answer questions if needed when they talk about planning his future care. He is receptive to the visit, however he states "I don't want a big crowd." Will allow him to rest this morning and will check in later this afternoon. Emotional support given. Pt voices no requests at the time of my visit this morning.
--- NOTE | 2021-01-21 15:37 | NUR ---
SHIFT SUMMARY TITRATED FIO2 TO 80%, REMAINS OF 55L O2 VIA HFNC; LS CONTINUES TO BE COARSE. SOB WITH EXERTION, SPO2 >90% T/O SHIFT. PT A&Ox3; CALM AND COOPERATIVE WITH CARE. UP IN CHAIR FOR APPROX 2 HOURS THIS AM, BACK TO BED AFTER BREAKFAST. PT APPEARS TO BE SLEEPING FOR MAJOIRTIY OF SHIFT. PT DENIES PAIN, CHEST PAIN, NAUSEA AND DIZZINESS T/O SHIFT. MAP >60 T/O SHIFT. HR AFIB 90-110'S T/O SHIFT. OTHER VSS. PT STARTED ON FLUID RESTRICTION; PT AND DAUGHTER EDUCATED. NO OTHER ACUTE CHANGES NOTED. REPORT GIVEN FIONA PINEDO ASSUMING CARE OF PATIENT.
--- NOTE | 2021-01-21 16:16 | NUR ---
Assumed care of pt at 1515 from Daniella JAIMES. Pt in bed, visiting with daughter and palliative care. POLST placed on chart for primary to sign. Pt assisted to use commode with 2 person max assist. Atrial fibrillation per monitor, rate 95-105. Pt currently on V60 high flow therapy with 55 LPM flow and 80% FiO2. Condom catheter in place, draining. Excellent urine output. Pt currently chewing on ice cubes.
--- NOTE | 2021-01-21 17:20 | NUR ---
Requested by nursing to come visit with pt and his dtr to discuss advanced care planning. Pt's dtr, Sandy, who lives in [place] is at the bedside. Reviewed POLST and AD forms and answered questions. Discussed what full code, full treatment would look like. Reviewed his chronic illnesses. At this time, Anuel would like to remain a full code with full treatment. He completed a POLST and this was placed on his chart for the MD to sign. Sandy states that she will talk with her dad about the AD and will take the AD to her aunt (Anuel's sister, Rox) who is an alternate decision maker for him. Sandy reports that the family is all kept up to date on his progress. Anuel gave this casualty underwriter verbal consent to speak with his niece, Rox Purdy, who is a RN in [place]. Phone call to Rox Purdy, to give her an update. She will update her mom, Anuel's sister Rox, on his current condition. Nursing updated. Anuel remains on high flow oxygen. He appears weak and fatigued but alert and oriented during the visit. Reviewed progress notes. Cardiology has consulted and plans to do a cardiac cath once pt is stable enough to do so. PC will continue to follow.
--- NOTE | 2021-01-21 17:44 | NUR ---
SUMMARY No acute changes since assumption of care. Pt stated his bed was uncomfortable. Matress deflated. Bed had error notification saying it needed serviced. Pt transferred to room ICU 2 for new bed. No signs of skin breakdown from air mattress failrue. Will continue to closely monitor until care handoff and bedside report with oncoming RN.
--- NOTE | 2021-01-21 19:20 | NUR ---
ASSUMPTION OF CARE RECEIVED REPORT FROM KHRIS JAIMES AT 1915, ASSUMED CARE OF PATIENT. PATIENT IN BED WITH EYES CLOSED, NO S/S OF DISTRESS. AIRVO IN PLACE AT 55L AND 85% WITH 02 SATS ABOVE 95%. VITALS STABLE. CONDOM CATHETER IN PLACE WITH CLEAR, YELLOW URINE DRAINING. WILL REVIEW ORDERS AND TREAT PRESCRIBED.
--- NOTE | 2021-01-22 | NUR ---
REASSESSMENT N0 ACUTE CHANGES FROM PREVIOUS ASSESSMENT. FIO2 DECREASED TO 65% WITH SATS OF 93%. PATIENT WITH EYES CLOSED, NO S/S OF DISTRESS. VITALS STABLE. REPOSITIONED, CALL LIGHT IN REACH.
--- NOTE | 2021-01-22 04:00 | NUR ---
REASSESSMENT NO ACUTE CHANGES FROM PREVIOUS ASSESSMENT. PATIENT A/O, WATCHING TV. DENIES NEEDS OR DISCOMFORTS. VITALS STABLE. AIRVO REMAINS AT 55L AND 65% WITH SATS ABOVE 95%. CONDOM CATH REMAINS PATENT AND DRAINING CLEAR, YELLOW URINE. CALL LIGHT IN REACH.
[2021-01-22 04:26] LABS: BASOPHILS ABSOLUTE AUTO 0.01 K/mm3 (0.00-0.23); BASOPHILS PERCENT AUTO 0 % (0-2); EOSINOPHILS PERCENT AUTO 0 % (0-6); Hematocrit 29.5 % (37.0-53.0); Hemoglobin 8.5 g/dL (13.5-17.5); IMMATURE GRAN ABSOLUTE AUTO 0.06 K/mm3 (0.00-0.10); IMMATURE GRAN PERCENT AUTO 1 % (0-1); LYMPHOCYTES ABSOLUTE AUTO 0.85 K/mm3 (0.84-5.20); LYMPHOCYTES PERCENT AUTO 8 % (21-46); MONOCYTES ABSOLUTE AUTO 0.33 K/mm3 (0.16-1.47); MONOCYTES PERCENT AUTO 3 % (4-13); Mean Corpuscular HGB 23.2 pg (26.0-34.0); Mean Corpuscular HGB Conc 28.8 g/dL (31.5-36.5); Mean Corpuscular Volume 80 fL (80-100); Mean Platelet Volume 10.1 fL (9.1-12.4); NEUTROPHILS ABSOLUTE AUTO 9.88 K/mm3 (1.96-9.15); NEUTROPHILS PERCENT AUTO 89 % (41-73); Platelet Count 458 K/mm3 (150-400); RDW Coefficient Variation 21.2 % (11.7-14.2); RDW Standard Deviation 60.7 fL (35.1-46.3); Red Blood Cell Count 3.67 M/mm3 (4.30-5.90); White Blood Cell Count 11.13 K/mm3 (4.00-11.30)
[2021-01-22 04:45] LABS: Anion Gap 2 mmol/L (6-16); Blood Urea Nitrogen 29 mg/dL (8-24); Bun/Creatinine Ratio 27.4 (12.0-20.0); CO2, Blood 34 mmol/L (21-32); Calcium, Blood 9.1 mg/dL (8.5-10.1); Chloride, Blood 107 mmol/L (98-108); Creatinine, Blood 1.06 mg/dL (0.60-1.20); Glomerular Filtration Rate >60 (60-); Glucose, Blood 137 mg/dL (70-99); Potassium, Blood 3.7 mmol/L (3.5-5.5); Sodium, Blood 143 mmol/L (136-145)
--- NOTE | 2021-01-22 05:55 | NUR ---
SHIFT SUMMARY PATIENT WITH STABLE VITALS, IMPROVED SP02 AND DECREASED FIO2 FROM 85% TO 65%. PATIENT MAINTAINING SATS WITH THIS DECREASE. REMAINED A/O, COOPERATIVE AND HELPFUL WITH TURNS. TOLERATES PO INTAKE WELL, MONITORED FLUIDS TO ADHERE TO THE FLUID RESTRICTION OF 1500ML/DAY. WILL CONTINUE TO MONITOR AND REPORT TO ONCOMING RN.
--- NOTE | 2021-01-22 13:05 | NUR ---
UPDATE: ASSUMED CARE OF PT THIS AM AFTER RECEIVING REPORT FROM FIONA HANNON. PT HAS BEEN A&OX4, ANSWERING QUESTIONS APPROPRIATELY AND COOPERATIVE WITH CARE. PT HR TRENDING UP TO 110-140 RANGE, PLACED ON AMIODARONE GTT, TOLERATING WELL, HR RANGING 85-105 AT THIS TIME. OXYGEN FLOW HAS BEEN TITRATED DOWN TO 45 L/MIN AND FIO2 50%, PT MAINTAINING O2 SATS >93%. PT UP TO BSC USING FWW, CONDOM CATHETER CONTINUES IN PLACE AND DRAINING TO GRAVITY. PT RESTING QUIETLY IN BED, WILL CONTINUE TO MONITOR AND TREAT ACCORDINGLY.
--- NOTE | 2021-01-22 16:27 | NUR ---
SHIFT SUMMARY: PT CONTINUES A&OX4, RESP EVEN AND UNLABORED, OXYGEN FLOW CURRENTLY SET TO 45% FIO2 AND 45 L/MIN, MAINTAINING O2 SATS >93%, HR MAINTAINED 75-95 BPM, AMIODARONE GTT CONTINUES. FR OF 1500ML CONTINUES, WELL DIURESIS BID. XARELTO ORDERS HAVE BEEN DC'D. POSSIBLE ANGIOGRAM OVER THE NEXT COUPLE DAYS DEPENDING ON PT CONDITION. WILL CONTINUE TO MONITOR AND TREAT ACCORDINGLY UNTIL CHANGE OF SHIFT.
--- NOTE | 2021-01-22 18:35 | NUR ---
UPDATE: PT UP IN ROOM TO BEDSIDE RECLINER AND TO BSC. PT RAC IV ACCIDENTALLY PULLED, NEW IV ACCESS PLACED TO RFA. PT CONDOM CATH FALLS OFF, NEW CONDOM CATH PLACED AND DRAINING WELL.
--- NOTE | 2021-01-22 20:00 | NUR ---
ASSESSMENT/ASSUMED CARE PT AWAKE SITTING UP IN BED WATCHING TV. DENIES PAIN OR DISCOMFORT. STATES,"I'M STILL A LITTLE SOB WHEN I MOVE AROUND, BUT IT IS MUCH BETTER". LUNGS CLEAR BUT DECREASED ON HIGH FLOW O2 45 LITERS 45%. OCC PRODUCTIVE COUGH WITH SCANT AMT CLEAR FLUID. HEART RATE IRREGULAR-AFIB IN THE 80-90'S. PT ON AMIODARONE GTT CURRENTLY AT 0.5 MG/MIN. BT+ ABD ROUND/OBESE. DENIES N/V. CONDOM CATH INTACT. IV 20G TO RIGHT FOREARM WITH NS AT 10 ML/HR, SITE CLEAR. POWER GLIDE TO RIGHT UPPER ARM WITH AMIODARONE INFUSING. DRSG ROLLING UP, WILL CHANGE. PT REPOSITIONED. HS MEDS GIVEN.
--- NOTE | 2021-01-22 22:03 | NUR ---
BIPAP PT DROPPING DOWN ON SAT TO 84% THAN BACK TO 93-94%. RT PLACED PT ON BIPAP / RATE 12 FIO2 45%.
[2021-01-23 05:57] LABS: Hematocrit 30.2 % (37.0-53.0); Hemoglobin 8.7 g/dL (13.5-17.5); Mean Corpuscular HGB Conc 28.8 g/dL (31.5-36.5); Mean Corpuscular Volume 80 fL (80-100); Mean Platelet Volume 9.6 fL (9.1-12.4); Platelet Count 474 K/mm3 (150-400); RDW Coefficient Variation 21.4 % (11.7-14.2); RDW Standard Deviation 60.7 fL (35.1-46.3); Red Blood Cell Count 3.78 M/mm3 (4.30-5.90); White Blood Cell Count 15.08 K/mm3 (4.00-11.30)
--- NOTE | 2021-01-23 06:06 | NUR ---
SHIFT SUMMARY PT RESTING QUIETLY WITH THE BIPAP ON. MOVING AND USING CALL LIGHT. BIPAP PLACED DUE TO PT SPO2 GOING DOWN TO 80'S THAN BACK UP TO 90'S WHILE SLEEPING. BIPAP SETTINGS 10/5 RATE 12 FIO2 45%. HEART RATE CONT IRREGULAR. BP STABLE. AMIODARONE AT 0.5 MG/MIN. PT POSSIBLE ANGIO TODAY. LABS DRAWN VIA POWER GLIDE WITHOUT DIFFICULTY. REPORT TO ON COMING NURSE
[2021-01-23 06:35] LABS: Albumin, Blood 1.7 g/dL (3.4-5.0); Anion Gap 4 mmol/L (6-16); Blood Urea Nitrogen 34 mg/dL (8-24); Bun/Creatinine Ratio 31.5 (12.0-20.0); CO2, Blood 35 mmol/L (21-32); Calcium, Blood 8.9 mg/dL (8.5-10.1); Chloride, Blood 105 mmol/L (98-108); Creatinine, Blood 1.08 mg/dL (0.60-1.20); Glomerular Filtration Rate >60 (60-); Glucose, Blood 112 mg/dL (70-99); Magnesium, Blood 2.4 mg/dL (1.6-2.4); Phosphorus, Blood 3.5 mg/dL (2.5-4.9); Potassium, Blood 3.4 mmol/L (3.5-5.5); Sodium, Blood 144 mmol/L (136-145)
--- NOTE | 2021-01-23 10:15 | NUR ---
Case conference and review of current status with pt's RN. Pt is currently working with OT in his ICU room. RN states he is scheduled for angiogram today. Pt's POLST, completed over weekend with [facility] RN is on the chart but unsigned as yet. Both our RN and pt's niece verified that pt desires to be a full code, full tx status. Discussed need for signature with pt's RN and note left on chart requesting provider signature on POLST. Will check back tomorrow on pt and process POLST if signed.
--- NOTE | 2021-01-23 14:30 | NUR ---
UPDATE PT ALERT AND ORIENTED. VS STABLE. O2 SATS REMAIN ABOVE 90% AND PT TITRATED DOWN TO 8L VIA OXYMIZER. BP STABLE. HR AFIB 90'S. PLAN FOR PT TO BE TAKEN TO CHURN TENDER IN THE AM. STATUS CHANGED TO PCU. REPORT GIVEN TO STEPHEN JAIMES. PT TAKEN TO PCU 11 BY BED.
--- NOTE | 2021-01-23 15:00 | NUR ---
Newly completed/signed POLST sent to medical records & copy placed on pt's chart. Original given to pt and sister, Rox. Sister requested assist with completing an AD for both of them. Time spent reviewing and explaining the AD and how to complete. Blank AD forms given to sister and a POLST for sister to complete with her PCP. Pt reports he is not hurting. He looks very fatigued and dyspnic. He has oximizer/O2 via nc in place and denies dyspnea. He has not used home O2 prev. Pt and sister appreciative of conversation re: advanced care planning. Pt wishes to remain a full code at this time. He is anticipating an angiogram for further cardiac w/u and dx in the morning. Sister requests a call with results/update afterwards. I passed this on to nursing and wrote her name and number on white board in pt's room. Plan to follow up with them tomorrow and answer any further questions regarding the AD. I gave Rox my card to contact us at any time with advanced care planning questions.
--- NOTE | 2021-01-23 15:06 | NUR ---
Met pt. in bed and he in the room on visit, pt. reports doing much better , encouraged pt. and offered prayers.
--- NOTE | 2021-01-23 18:43 | NUR ---
SHIFT SUMMARY ASSUMED CARE AT 1420, NO ACUTE CHANGES; A&OX4, VSS, KAILA PO, LOCKE PATENT & DRAINING YELLOW URINE, PLAN FOR NPO MIDNIGHT FOR ANGIOGRAM TOMORROW. WILL REPORT TO ONCOMING NOEMI RN.
[2021-01-24 06:19] LABS: BASOPHILS ABSOLUTE AUTO 0.03 K/mm3 (0.00-0.23); BASOPHILS PERCENT AUTO 0 % (0-2); EOSINOPHILS ABSOLUTE AUTO 0.11 K/mm3 (0.00-0.68); EOSINOPHILS PERCENT AUTO 1 % (0-6); Hematocrit 31.8 % (37.0-53.0); Hemoglobin 9.2 g/dL (13.5-17.5); IMMATURE GRAN ABSOLUTE AUTO 0.09 K/mm3 (0.00-0.10); IMMATURE GRAN PERCENT AUTO 1 % (0-1); LYMPHOCYTES ABSOLUTE AUTO 1.67 K/mm3 (0.84-5.20); LYMPHOCYTES PERCENT AUTO 12 % (21-46); MONOCYTES ABSOLUTE AUTO 0.54 K/mm3 (0.16-1.47); MONOCYTES PERCENT AUTO 4 % (4-13); Mean Corpuscular HGB 23.5 pg (26.0-34.0); Mean Corpuscular HGB Conc 28.9 g/dL (31.5-36.5); Mean Corpuscular Volume 81 fL (80-100); Mean Platelet Volume 10.5 fL (9.1-12.4); NEUTROPHILS ABSOLUTE AUTO 11.42 K/mm3 (1.96-9.15); NEUTROPHILS PERCENT AUTO 83 % (41-73); Platelet Count 517 K/mm3 (150-400); RDW Coefficient Variation 22.5 % (11.7-14.2); RDW Standard Deviation 63.5 fL (35.1-46.3); Red Blood Cell Count 3.91 M/mm3 (4.30-5.90); White Blood Cell Count 13.86 K/mm3 (4.00-11.30)
[2021-01-24 06:38] LABS: Alanine Aminotransfer (ALT/SGP 164 U/L (12-78); Albumin, Blood 1.8 g/dL (3.4-5.0); Albumin/Globulin Ratio 0.4 (0.8-1.8); Alk Phos 96 U/L (50-136); Anion Gap 4 mmol/L (6-16); Aspartate Aminotrans (AST/SGOT 170 U/L (12-37); Bilirubin, Total 0.4 mg/dL (0.1-1.0); Blood Urea Nitrogen 32 mg/dL (8-24); Bun/Creatinine Ratio 28.8 (12.0-20.0); CO2, Blood 34 mmol/L (21-32); Calcium, Blood 8.9 mg/dL (8.5-10.1); Chloride, Blood 103 mmol/L (98-108); Creatinine, Blood 1.11 mg/dL (0.60-1.20); Globulin, Blood 4.7 g/dL (2.2-4.0); Glomerular Filtration Rate >60 (60-); Glucose, Blood 94 mg/dL (70-99); Magnesium, Blood 2.2 mg/dL (1.6-2.4); Potassium, Blood 3.8 mmol/L (3.5-5.5); Sodium, Blood 141 mmol/L (136-145); Total Protein, Blood 6.5 g/dL (6.4-8.2)
--- NOTE | 2021-01-24 07:10 | NUR ---
PT TAKEN TO THE OUTBOARD SYSTEM OPERATOR FOR PROCEDURE. WILL AWAIT RETURN.
--- NOTE | 2021-01-24 07:16 | NUR ---
SUMMARY NO ACUTE CHANGES NOTED THROUGH THE NIGHT. PT WAS ABLE TO REST WITH NO PROBLEMS. HE DENIES CP/PRESSURE, COUPLETTE PVC'S REPORTED BY BARK GRINDER, PT NPO SINCE MIDNIGHT, VOIDING WNL, PT TO THE DISTRIBUTOR OPERATOR THIS AM, REPORT GIVEN TO DAY RN.
--- NOTE | 2021-01-24 08:30 | NUR ---
UPDATE PT RETURNED FROM THE CERTIFIED ATHLETIC TRAINER. VS STABLE. O2 SATS REMAIN ABOVE 90% ON 7L OXYMIZER. BP STABLE. HR AFIB 80'S. PT DENIES ANY PAIN. RIGHT GROIN SITE WITH LIAM DRSNG IN PLACE FREE FROM ANY BLEEDING, BRUISING OR HEMATOMA. PT INSTRUCTED ON ACTIVITY RESTRICTIONS. WILL CONTINUE TO MONITOR CLOSELY.
--- NOTE | 2021-01-24 14:26 | NUR ---
met pt in bed and his nurse in the room attending to his needs , pt is doing fine encouraged him and prayed for him
[2021-01-24 15:12] LABS: ANA DIRECT Negative (Negative); ANTIMYELOPEROXIDASE (MPO) ABS <9.0 U/mL (0.0-9.0); ANTIPROTEINASE 3 (PR-3) ABS <3.5 U/mL (0.0-3.5); ATYPICAL PANCA <1:20 titer (Neg:<1:20); CYTOPLASMIC (C-ANCA) <1:20 titer (Neg:<1:20); PERINUCLEAR (P-ANCA) <1:20 titer (Neg:<1:20)
--- NOTE | 2021-01-24 18:13 | NUR ---
SHIFT SUMMARY PT ALERT AND ORIENTED. VS STABLE. O2 SATS HAVE REMAINED ABOVE 90% ON 4L NC SINCE THIS AFTERNOON. PT TITRATED DOWN FROM 7L OXYMIZER. HR HAS BEEN AFIB IN THE 90-100'S. HR DID SPIKE UP TO 120'S AT TIMES, BUT PT ASYMPTOMATIC. BP STABLE. PT DENIES ANY PAIN. RIGHT GROIN SITE FREE FROM ANY BLEEDING, BRUISING OR HEMATOMA. NO PAIN AT GROIN SITE. CONDOM CATH IN PLACE. PT REPOSITIONED Q2H AND NEEDED. PT ABLE TO ASSIST WITH REPOSITIONING. WILL CONTINUE TO MONITOR AND REPORT TO ONCOMING RN. CALL LIGHT IN REACH.
--- NOTE | 2021-01-25 03:46 | NUR ---
POTASSIUM IN STOOL PT UP TO BEDSIDE COMMODE BRIGETTE AND KADIE HAYDEN'Darline, THIS RN CALLED TO BEDSIDE TO EXAMINE STOOL D/T WHOLE TABLETS FOUND IN LOOSE STOOL. WHOLE PIECES OF BEANS IN STOOL. PT STATES RUNNY STOOL YESTERDAY WELL. THIS RN COLLECTS SAMPLE. PILLS STILL HAVE VISIBLE LABELS ENSCRIBED IN TABLETS. IDENTIFIED POTASSIUM 10 MEQ TABLETS.
[2021-01-25 03:54] LABS: BASOPHILS ABSOLUTE AUTO 0.02 K/mm3 (0.00-0.23); BASOPHILS PERCENT AUTO 0 % (0-2); EOSINOPHILS ABSOLUTE AUTO 0.13 K/mm3 (0.00-0.68); EOSINOPHILS PERCENT AUTO 1 % (0-6); Hematocrit 33.6 % (37.0-53.0); Hemoglobin 9.7 g/dL (13.5-17.5); IMMATURE GRAN ABSOLUTE AUTO 0.05 K/mm3 (0.00-0.10); IMMATURE GRAN PERCENT AUTO 0 % (0-1); LYMPHOCYTES ABSOLUTE AUTO 2.02 K/mm3 (0.84-5.20); LYMPHOCYTES PERCENT AUTO 16 % (21-46); MONOCYTES ABSOLUTE AUTO 0.52 K/mm3 (0.16-1.47); MONOCYTES PERCENT AUTO 4 % (4-13); Mean Corpuscular HGB Conc 28.9 g/dL (31.5-36.5); Mean Corpuscular Volume 80 fL (80-100); Mean Platelet Volume 9.9 fL (9.1-12.4); NEUTROPHILS ABSOLUTE AUTO 10.06 K/mm3 (1.96-9.15); NEUTROPHILS PERCENT AUTO 79 % (41-73); Platelet Count 541 K/mm3 (150-400); RDW Coefficient Variation 22.5 % (11.7-14.2); RDW Standard Deviation 61.6 fL (35.1-46.3); Red Blood Cell Count 4.22 M/mm3 (4.30-5.90)
[2021-01-25 04:19] LABS: Alanine Aminotransfer (ALT/SGP 177 U/L (12-78); Albumin, Blood 1.9 g/dL (3.4-5.0); Albumin/Globulin Ratio 0.4 (0.8-1.8); Alk Phos 103 U/L (50-136); Anion Gap 4 mmol/L (6-16); Aspartate Aminotrans (AST/SGOT 130 U/L (12-37); Bilirubin, Total 0.3 mg/dL (0.1-1.0); Blood Urea Nitrogen 29 mg/dL (8-24); CO2, Blood 35 mmol/L (21-32); Calcium, Blood 8.8 mg/dL (8.5-10.1); Chloride, Blood 101 mmol/L (98-108); Globulin, Blood 4.8 g/dL (2.2-4.0); Glomerular Filtration Rate >60 (60-); Glucose, Blood 115 mg/dL (70-99); Magnesium, Blood 2.4 mg/dL (1.6-2.4); Potassium, Blood 3.9 mmol/L (3.5-5.5); Sodium, Blood 140 mmol/L (136-145); Total Protein, Blood 6.7 g/dL (6.4-8.2)
--- NOTE | 2021-01-25 07:23 | NUR ---
SHIFT SUMMARY PT AOX4, ON TELE, AFIB 70'S-90'S, TOWARDS CHANGE MANAGEMENT FACILITATOR TREND DOWN TO 60'S W/OCCASIONAL HR IN 50'S LOWEST SEEN BY TELE 54 BPM. OTHERWISE STABLE. PT SLEEPING. R GROIN SITE SOFT, NO SIGN OF HEMATOMA, STRONG FEMORAL PULSE, DRESSING IN PLACE. PT DENIES PAIN TO SITE ON ASSESSMENT THROUGH SHIFT. CAP REFILL <3 SECS. BREATHING IRREGULAR W/OCCASIONAL DEEP INSPIRATION. WHEN ASKED IF FEELING SOB, PT DENIES. SATS DROP W/WHAT APPEARS TO BE APNEA WHILE ASLEEP, THIS RN TITRATES O2 UP TO 5 L VIA NC. VARYING 88-97% W/PERIODS OF APNEA. RT AWARE. TITRATED DOWN TO 4 L IN AM D/T SATS 97% AND STEADY. PT HAD X1 BM W/ASSIST FROM CNAS, APPEARS TO BE LOOSE, DARK GREEN IN COLOR, WHOLE TABLETS OF POTASSIUM FOUND IN STOOL. SEE NURSES NOTE. IV AND ARINA PG SALINE LOCKED.
[2021-01-25 10:37] LABS: SARS-Cov-2 (COVID-19) PCR, MMC NEGATIVE (NEGATIVE)
[2021-01-25] MEDS ORDERED: Amiodarone HCl200 MG PO (10:41)
[2021-01-25] MEDS ORDERED: LANOXIN125 MCG PO (10:42)
[2021-01-25] MEDS ORDERED: DOCU100 PO (10:42)
[2021-01-25] MEDS ORDERED: Prednisone10 MG PO (10:43)
--- NOTE | 2021-01-25 11:31 | NUR ---
UPDATE PT ALERT AND ORIENTED. VS STABLE. HR AFIB 90-100'S. BP STABLE. O2 SATS REMAIN ABOVE 90% ON 4L NC. PT DENIES ANY PAIN. ORDERS FOR DISCHARGE TO [facility] AND TRANSPORT IN TO TAKE PT
== END 2021-01-25 11:30 | DRG 286 ==
LOC: ER 12:24 → ICUE 16:49 → MEDS 16:49 → ICUE 01-17 10:28 → PCU 01-23 14:21
PROVIDERS: Emergency Medicine; Internal Medicine; Internal Medicine Critical Care Medicine; Internal Medicine Pulmonary Disease; Physician Assistant; Student in an Organized Health Care Education/Training Program; ADMIT Internal Medicine
PROC: 5A09557 Assistance with Respiratory Ventilation, Greater than 96 Consecutive Hours, Continuous Positive Airway Pressure (ICD-10-PCS; 2021-01-12)
PROC: 30233N1 Transfusion of Nonautologous Red Blood Cells into Peripheral Vein, Percutaneous Approach (ICD-10-PCS; principal; 2021-01-17)
PROC: 3E033XZ Introduction of Vasopressor into Peripheral Vein, Percutaneous Approach (ICD-10-PCS; 2021-01-17)
PROC: 4A023N6 Measurement of Cardiac Sampling and Pressure, Right Heart, Percutaneous Approach (ICD-10-PCS; 2021-01-24)
PROC: B2111ZZ Fluoroscopy of Multiple Coronary Arteries using Low Osmolar Contrast (ICD-10-PCS; 2021-01-24)
DX: I13.0 Hypertensive heart and chronic kidney disease with heart failure and stage 1 through stage 4 chronic kidney disease, or unspecified chronic kidney disease (principal); J96.01 Acute respiratory failure with hypoxia; I50.43 Acute on chronic combined systolic (congestive) and diastolic (congestive) heart failure; J18.9 Pneumonia, unspecified organism; I48.19 Other persistent atrial fibrillation; I50.42 Chronic combined systolic (congestive) and diastolic (congestive) heart failure; R04.2 Hemoptysis; J91.8 Pleural effusion in other conditions classified elsewhere; T82.855A Stenosis of coronary artery stent, initial encounter; I42.8 Other cardiomyopathies; I48.0 Paroxysmal atrial fibrillation; I25.10 Atherosclerotic heart disease of native coronary artery without angina pectoris; Z20.822 Contact with and (suspected) exposure to COVID-19; F43.10 Post-traumatic stress disorder, unspecified; D50.9 Iron deficiency anemia, unspecified; N40.0 Benign prostatic hyperplasia without lower urinary tract symptoms; G89.4 Chronic pain syndrome; D63.1 Anemia in chronic kidney disease; M54.5 Low back pain; N18.1 Chronic kidney disease, stage 1; F17.210 Nicotine dependence, cigarettes, uncomplicated; Z96.653 Presence of artificial knee joint, bilateral; D75.82 Heparin induced thrombocytopenia (HIT); I27.20 Pulmonary hypertension, unspecified; Z98.890 Other specified postprocedural states; Z71.6 Tobacco abuse counseling; Z79.899 Other long term (current) drug therapy
CPT/HCPCS: 0202U; 36415; 36430; 36600; 71045; 71046; 71250; 80048; 80053; 80069; 80162; 82728; 82803; 83520; 83540; 83550; 83605; 83735; 83880; 84100; 84132; 84145; 84443; 84484; 85025; 85027; 85651; 86140; 86160; 86200; 86225; 86235; 86256; 86430; 86850; 86900; 86901; 86923; 87040; 87070; 87205; 93005; 93010; 93308; 93321; 93456; 93567; 94640; 94660; 94664; 94760; 94762; 96365; 96375; 97110; 97116; 97162; 97166; 97530; 97530-CO; 99152; 99153; 99285-25; A9270; C1751; C1760; C1769; C1894; J0282; J0456; J0696; J1160; J1644; J1940; J2250; J2543; J2916; J2920; J3010; J3480; J7030; J7050; J7060; P9016; Q9967; U0004

== ENCOUNTER 2022-09-26 22:05 | Emergency (ER) | payer OTHER ==
[~2022-09-26] VITALS: Ht 182.9 cm; Wt 83.9 kg
[~2022-09-26 22:05] MED LIST changes: +ALBU90OI INH; +Acetaminophen650 M1 PO; +BUPRENORPHN-NA1 EAC2 SL; +CHANTIX0.5 MG PO; +CLOP75 PO; +DILT30 PO; +DOCU100 PO; +FERSU300 PO; +FURO20 PO; +HYDHCL25 PO; +Isosorbide Mono30 MG PO; +LANOXIN125 MCG PO; +NICODERM CQ1 EA11 TD; +NITR.4SL SL; +Nitroglycerin1 EAC3 TD; +POTA10T PO; +Prednisone10 MG PO; +SPIRIVA RESPIMAT4 G3 INH; +VITAMIN D325 MC3 PO; +XARELTO20 MG PO
== END 2022-09-26 23:35 | disposition home or self-care (01) ==
LOC: ER 22:05
DX: S91.114A Laceration without foreign body of right lesser toe(s) without damage to nail, initial encounter (principal); W26.0XXA Contact with knife, initial encounter; I48.20 Chronic atrial fibrillation, unspecified; I11.0 Hypertensive heart disease with heart failure; I50.9 Heart failure, unspecified; I25.10 Atherosclerotic heart disease of native coronary artery without angina pectoris; E78.5 Hyperlipidemia, unspecified; Z79.899 Other long term (current) drug therapy; Z79.82 Long term (current) use of aspirin; Z79.02 Long term (current) use of antithrombotics/antiplatelets; Z79.01 Long term (current) use of anticoagulants; F17.210 Nicotine dependence, cigarettes, uncomplicated
CPT/HCPCS: 73660

== ENCOUNTER 2022-09-27 06:23 | Emergency (ER) | payer OTHER ==
[~2022-09-27] VITALS: Ht 182.9 cm; Wt 83.9 kg
[2022-09-27 06:46] LABS: BASOPHILS ABSOLUTE AUTO 0.07 K/mm3 (0.00-0.23); BASOPHILS PERCENT AUTO 1 % (0-2); EOSINOPHILS ABSOLUTE AUTO 0.12 K/mm3 (0.00-0.68); EOSINOPHILS PERCENT AUTO 1 % (0-6); Hematocrit 32.2 % (37.0-53.0); Hemoglobin 10.7 g/dL (13.5-17.5); IMMATURE GRAN ABSOLUTE AUTO 0.05 K/mm3 (0.00-0.10); IMMATURE GRAN PERCENT AUTO 1 % (0-1); LYMPHOCYTES ABSOLUTE AUTO 2.24 K/mm3 (0.84-5.20); LYMPHOCYTES PERCENT AUTO 24 % (21-46); MONOCYTES PERCENT AUTO 7 % (4-13); Mean Corpuscular HGB 30.5 pg (26.0-34.0); Mean Corpuscular HGB Conc 33.2 g/dL (31.5-36.5); Mean Corpuscular Volume 92 fL (80-100); Mean Platelet Volume 10.5 fL (9.1-12.4); NEUTROPHILS ABSOLUTE AUTO 6.24 K/mm3 (1.96-9.15); NEUTROPHILS PERCENT AUTO 66 % (41-73); Platelet Count 265 K/mm3 (150-400); RDW Coefficient Variation 15.9 % (11.7-14.2); RDW Standard Deviation 54.2 fL (35.1-46.3); Red Blood Cell Count 3.51 M/mm3 (4.30-5.90); White Blood Cell Count 9.42 K/mm3 (4.00-11.30)
== END 2022-09-27 08:28 | disposition home or self-care (01) ==
LOC: ER 06:23
PROVIDERS: Student in an Organized Health Care Education/Training Program
DX: L76.22 Postprocedural hemorrhage of skin and subcutaneous tissue following other procedure (principal); S91.114A Laceration without foreign body of right lesser toe(s) without damage to nail, initial encounter; I11.0 Hypertensive heart disease with heart failure; I50.9 Heart failure, unspecified; I25.10 Atherosclerotic heart disease of native coronary artery without angina pectoris; E78.5 Hyperlipidemia, unspecified; I25.2 Old myocardial infarction; F17.210 Nicotine dependence, cigarettes, uncomplicated; Z79.82 Long term (current) use of aspirin; Z79.52 Long term (current) use of systemic steroids; Z79.899 Other long term (current) drug therapy
CPT/HCPCS: 36415; 85025; 99283; J0572; J7030

== ENCOUNTER 2022-11-21 10:00 | Inpatient (IN) | payer OTHER ==
[~2022-11-21] VITALS: Ht 167.6 cm; Wt 85.2 kg
[2022-11-21 10:49] LABS: BASOPHILS ABSOLUTE AUTO 0.05 K/mm3 (0.00-0.23); BASOPHILS PERCENT AUTO 1 % (0-2); EOSINOPHILS PERCENT AUTO 3 % (0-6); Hematocrit 32.5 % (37.0-53.0); IMMATURE GRAN ABSOLUTE AUTO 0.02 K/mm3 (0.00-0.10); IMMATURE GRAN PERCENT AUTO 0 % (0-1); LYMPHOCYTES ABSOLUTE AUTO 1.32 K/mm3 (0.84-5.20); LYMPHOCYTES PERCENT AUTO 22 % (21-46); MONOCYTES ABSOLUTE AUTO 0.53 K/mm3 (0.16-1.47); MONOCYTES PERCENT AUTO 9 % (4-13); Mean Corpuscular HGB 28.3 pg (26.0-34.0); Mean Corpuscular HGB Conc 30.8 g/dL (31.5-36.5); Mean Corpuscular Volume 92 fL (80-100); Mean Platelet Volume 10.3 fL (9.1-12.4); NEUTROPHILS ABSOLUTE AUTO 3.91 K/mm3 (1.96-9.15); NEUTROPHILS PERCENT AUTO 65 % (41-73); Platelet Count 357 K/mm3 (150-400); RDW Coefficient Variation 14.7 % (11.7-14.2); RDW Standard Deviation 49.4 fL (35.1-46.3); Red Blood Cell Count 3.53 M/mm3 (4.30-5.90); White Blood Cell Count 6.03 K/mm3 (4.00-11.30)
[2022-11-21 11:12] LABS: Albumin, Blood 2.2 g/dL (3.4-5.0); Albumin/Globulin Ratio 0.6 (0.8-1.8); Bilirubin, Total 0.3 mg/dL (0.1-1.0); Bun/Creatinine Ratio 12.1 (12.0-20.0); Calcium, Blood 8.2 mg/dL (8.5-10.1); Globulin, Blood 3.7 g/dL (2.2-4.0); Potassium, Blood 3.3 mmol/L (3.5-5.5); Total Protein, Blood 5.9 g/dL (6.4-8.2)
[2022-11-21 15:51] VITALS: BP 146/99
--- NOTE | 2022-11-21 16:11 | NUR ---
ER ADMIT AT 1540 RECEIVED REPORT FROM ASSURANCE MANAGER. PT ARRIVED TO FLOOR VIA W/C. PT PLACED SELF IN BED, MADE COMFORTABLE, ORIENTED TO ROOM AND UNIT ROUTINE. WGHT 84.3KG. IS A&O X 4. VSS. PLEASANT & COOPERATIVE. IS STEADY ON FEET. USES URINAL INDEPENDENTLY. 2+ PITTING EDEMA BILAT LE'S. PEDAL PULSES ARE WEAK. IS ON 3 L'S O2 VIA N/C. IS SOB WITH EXERTION OF PLACING SELF IN BED. PT DENIES USE OF HOME O2. CALL LIGHT WITHIN REACH & BED IN LOW POSITION.
[2022-11-21 20:08] VITALS: BP 114/75
--- NOTE | 2022-11-22 04:27 | NUR ---
SHIFT UNREMARKABLE. EARLY IN SHIFT, ISSUES WITH CONTINUOUS PULSE OX RELIABILITY DUE TO CHRONIC A-FIB. HAS BEEN FUNCTIONING THROUGHOUT MOST OF SHIFT SINCE THEN. SATTING WELL ON 3 L O2 VIA NC. NO COMPLAINTS OF PAIN. INDEPENDENT WITH URINAL AND BEDSIDE COMMODE WITHIN ROOM. TOOK 2100 MEDICATIONS WITHOUT DIFFICULTY. AOX4, PLEASANT, COOPERATIVE WITH CARE. BED LOCKED IN LOWEST POSITION. CALL LIGHT LEFT WITHIN REACH.
[2022-11-22 04:52] VITALS: BP 117/67
[2022-11-22 06:40] LABS: BASOPHILS ABSOLUTE AUTO 0.03 K/mm3 (0.00-0.23); BASOPHILS PERCENT AUTO 0 % (0-2); EOSINOPHILS ABSOLUTE AUTO 0.14 K/mm3 (0.00-0.68); EOSINOPHILS PERCENT AUTO 2 % (0-6); Hematocrit 35.9 % (37.0-53.0); Hemoglobin 11.4 g/dL (13.5-17.5); IMMATURE GRAN ABSOLUTE AUTO 0.04 K/mm3 (0.00-0.10); IMMATURE GRAN PERCENT AUTO 0 % (0-1); LYMPHOCYTES ABSOLUTE AUTO 1.04 K/mm3 (0.84-5.20); LYMPHOCYTES PERCENT AUTO 11 % (21-46); MONOCYTES ABSOLUTE AUTO 0.79 K/mm3 (0.16-1.47); MONOCYTES PERCENT AUTO 8 % (4-13); Mean Corpuscular HGB 28.7 pg (26.0-34.0); Mean Corpuscular HGB Conc 31.8 g/dL (31.5-36.5); Mean Corpuscular Volume 90 fL (80-100); Mean Platelet Volume 10.2 fL (9.1-12.4); NEUTROPHILS ABSOLUTE AUTO 7.37 K/mm3 (1.96-9.15); NEUTROPHILS PERCENT AUTO 78 % (41-73); Platelet Count 364 K/mm3 (150-400); RDW Coefficient Variation 14.6 % (11.7-14.2); RDW Standard Deviation 47.9 fL (35.1-46.3); Red Blood Cell Count 3.97 M/mm3 (4.30-5.90); White Blood Cell Count 9.41 K/mm3 (4.00-11.30)
[2022-11-22 07:01] LABS: Albumin, Blood 2.4 g/dL (3.4-5.0); Albumin/Globulin Ratio 0.6 (0.8-1.8); Bilirubin, Total 0.6 mg/dL (0.1-1.0); Bun/Creatinine Ratio 14.3 (12.0-20.0); Calcium, Blood 8.2 mg/dL (8.5-10.1); Creatinine, Blood 0.98 mg/dL (0.60-1.20); Globulin, Blood 3.8 g/dL (2.2-4.0); Potassium, Blood 3.3 mmol/L (3.5-5.5); Total Protein, Blood 6.2 g/dL (6.4-8.2)
[2022-11-22 07:16] VITALS: BP 115/70
[2022-11-22 12:07] VITALS: BP 113/60
[2022-11-22 13:27] LABS: Bun/Creatinine Ratio 14.4 (12.0-20.0); Calcium, Blood 8.7 mg/dL (8.5-10.1); Creatinine, Blood 1.04 mg/dL (0.60-1.20); Potassium, Blood 3.7 mmol/L (3.5-5.5)
[2022-11-22 14:42] VITALS: BP 102/60
--- NOTE | 2022-11-22 17:40 | NUR ---
SHIFT SUMMARY PATIENT IS ALERT AND ORIENTED. PATIENT HAS HAD NO ACUTE EVENTS THIS SHIFT. VITAL SIGNS REVIEWED. PATIENT HAS HAD STRICT I/OS DOCUMENTED AND ADHERED TO THIS SHIFT. PATIENT HAS NOT COMPLAINED OF NAUSEA, SOB OR VOMITTING. PATIENT HAS BEEN RESTING MOST OF SHIFT. BED IN LOCKED AND LOWEST POSITION. CALL LIGHT IN PLACE. WILL MONITOR UNTIL SHIFT CHANGE.
[2022-11-22 19:20] VITALS: BP 109/62
--- NOTE | 2022-11-23 03:46 | NUR ---
SHIFT MOSTLY UNREMARKABLE. TOOK 2100 MEDICATIONS WITHOUT DIFFICULTY. PT REQUESTED DAILY NICOTINE PATCH, ORDER RECEIVED FROM HOSPITALIST AND PATCH APPLIED. ON 3 L O2, PT WOULD OCCASIONALLY DESATURATE TO MID 80s WHEN SLEEPING OR MOVING. WOULD INCREASE UPON BEING REMINDED TO BREATHE DEEPLY THROUGH NOSE. TUNED O2 UP TO 4 L/MIN AFTER WHICH POINT PT HAS BEEN SATTING >90% WITH ONLY VERY SPORADIC DIPS. SHIFT OTHERWISE NOT NOTEWORTHY. PT AOX4, PLEASANT, COOPERATIVE WITH CARE. BED LOCKED IN LOWEST POSITION. CALL LIGHT LEFT WITHIN REACH.
[2022-11-23 05:08] VITALS: BP 118/69
[2022-11-23 07:30] VITALS: BP 108/63
[2022-11-23 07:43] LABS: Bun/Creatinine Ratio 18.3 (12.0-20.0); Calcium, Blood 8.4 mg/dL (8.5-10.1); Creatinine, Blood 0.99 mg/dL (0.60-1.20); Potassium, Blood 3.3 mmol/L (3.5-5.5)
--- NOTE | 2022-11-23 10:16 | NUR ---
ATTEMPT TO TITERATE O2 WAS UNSUCCESSFUL, SATTED 60-70'S WITHOUT O2. APPLIED O2 2L SATTED LOW 80'S, APPLIED 3L SATTING CURRENTLY AT UPPER 80'S LOW 90'S. 92% AT THIS TIME.
--- NOTE | 2022-11-23 17:54 | NUR ---
SHIFT SUMMARY-ATTEMPTED TO WEAN OF O2. PT DESATTED INTO 60-70'S. REAPPLIED O2 3L SATTING LOW 90'S ON PULSE OX. APPETITE GOOD. A&O X4. PLEASANT AND COMPLIANT WITH ALL CARE. NO C/O PAIN THIS SHIFT. WILL CONTINUE TO MONITOR. CALL JOSE G LUCAS.
[2022-11-23 18:42] LABS: Adenovirus Not Detected (NOT DETECT); Bordetella pertussis Not Detected (NOT DETECT); Chlamydophila pneumoniae Not Detected (NOT DETECT); Coronavirus 229E Not Detected (NOT DETECT); Coronavirus HKU1 Not Detected (NOT DETECT); Coronavirus NL63 Not Detected (NOT DETECT); Coronavirus OC43 Not Detected (NOT DETECT); Human Metapneumovirus Not Detected (NOT DETECT); Human Rhinovirus/Enterovirus Not Detected (NOT DETECT); Influenza A/2009-H1 Not Detected (NOT DETECT); Influenza A/H1 Not Detected (NOT DETECT); Influenza A/H3 Not Detected (NOT DETECT); Influenza B Not Detected (NOT DETECT); Mycoplasma pneumoniae Not Detected (NOT DETECT); Parainfluenza Virus 1 Not Detected (NOT DETECT); Parainfluenza Virus 2 Not Detected (NOT DETECT); Parainfluenza Virus 3 Not Detected (NOT DETECT); Parainfluenza Virus 4 Not Detected (NOT DETECT); Respiratory Syncytial Virus Not Detected (NOT DETECT); SARS-Cov-2 (COVID-19), BioFire Not Detected (NOT DETECT)
[2022-11-23 19:31] VITALS: BP 110/65
[2022-11-24 04:33] VITALS: BP 108/55
--- NOTE | 2022-11-24 05:07 | NUR ---
Summary: Patient on 3L NC overnight. Patient on cont pulse ox, occasionally was dropping into 70s but quickly returned back to low 90s while sleeping. VSS. Voided in urinal overnight. monitored on tele, no acute events.
[2022-11-24 05:24] LABS: BASOPHILS ABSOLUTE AUTO 0.05 K/mm3 (0.00-0.23); BASOPHILS PERCENT AUTO 1 % (0-2); EOSINOPHILS ABSOLUTE AUTO 0.33 K/mm3 (0.00-0.68); EOSINOPHILS PERCENT AUTO 4 % (0-6); Hematocrit 31.4 % (37.0-53.0); Hemoglobin 9.7 g/dL (13.5-17.5); IMMATURE GRAN ABSOLUTE AUTO 0.02 K/mm3 (0.00-0.10); IMMATURE GRAN PERCENT AUTO 0 % (0-1); LYMPHOCYTES ABSOLUTE AUTO 1.48 K/mm3 (0.84-5.20); LYMPHOCYTES PERCENT AUTO 18 % (21-46); MONOCYTES ABSOLUTE AUTO 0.61 K/mm3 (0.16-1.47); MONOCYTES PERCENT AUTO 8 % (4-13); Mean Corpuscular HGB Conc 30.9 g/dL (31.5-36.5); Mean Corpuscular Volume 91 fL (80-100); Mean Platelet Volume 10.3 fL (9.1-12.4); NEUTROPHILS ABSOLUTE AUTO 5.55 K/mm3 (1.96-9.15); NEUTROPHILS PERCENT AUTO 69 % (41-73); Platelet Count 290 K/mm3 (150-400); RDW Coefficient Variation 14.5 % (11.7-14.2); RDW Standard Deviation 48.8 fL (35.1-46.3); Red Blood Cell Count 3.46 M/mm3 (4.30-5.90); White Blood Cell Count 8.04 K/mm3 (4.00-11.30)
[2022-11-24 05:49] LABS: Bun/Creatinine Ratio 20.6 (12.0-20.0); Calcium, Blood 8.4 mg/dL (8.5-10.1); Creatinine, Blood 1.07 mg/dL (0.60-1.20)
[2022-11-24 07:49] VITALS: BP 113/56
[2022-11-24 13:44] LABS: Bun/Creatinine Ratio 20.4 (12.0-20.0); Calcium, Blood 8.2 mg/dL (8.5-10.1); Creatinine, Blood 1.08 mg/dL (0.60-1.20); Potassium, Blood 3.9 mmol/L (3.5-5.5)
[2022-11-24 17:18] VITALS: BP 99/63
--- NOTE | 2022-11-24 18:18 | NUR ---
SHIFT SUMMARY NO ACUTE CHANGES THIS SHIFT. PT DID NOT C/O P/CP/SOB. PT HAD NO COMPLAINTS OTHER THAN THE WANTS TO GO HOME. HE SLEPT OFF AND ON T/O THE DAY BUT WAS EASY TO AROUSE. PT USING URINAL AT THE BS AND TOLERATING WELL. MONITORING STRICT I'S AND O'S. WILL REPORT TO ONCOMING NURSE.
[2022-11-24 19:56] VITALS: BP 100/63
[2022-11-25 05:22] VITALS: BP 91/42
--- NOTE | 2022-11-25 05:42 | NUR ---
SHIFT SUMMARY: A&O X 3, ABLE TO MAKE NEEDS KNOWN. CONTINUES ON ABX THERAPY FOR PNEUMONIA. IV UPPER RIGHT ARM FLUSHES WELL CURRENTLY SALINE LOCKED. INDEPENDENT IN ROOM, AMBULATES TO BATHROOM, STANDS AT BEDSIDE FOR URINAL USE. 1500 ML FLUID RESTRICTION WHICH HE IS TOLERATING. HE IS URINATING WITHOUT PAIN OR DISCOMFORT. SOFT BITE SIZE PO INTAKE WHICH HE IS TOLERATING. CONTINUES ON TELE, REPLACED 2 PADS THIS EVENING ON RIGHT SIDE. DAY 4 OF NO BM RECEIVING BOWEL CARE PRODUCTS CURRENTLY. CALL LIGHT WITHIN REACH.
[2022-11-25 08:00] VITALS: BP 112/65
[2022-11-25 09:33] LABS: Hematocrit 32.5 % (37.0-53.0); Hemoglobin 10.1 g/dL (13.5-17.5)
[2022-11-25 09:51] LABS: Calcium, Blood 8.3 mg/dL (8.5-10.1); Potassium, Blood 3.2 mmol/L (3.5-5.5)
[2022-11-25 17:00] VITALS: BP 96/65
--- NOTE | 2022-11-25 18:12 | NUR ---
SHIFT SUMMARY NO ACUTE CHANGES THIS SHIFT. PT HAS HAD NO COMPLAINTS. HE IS CURRENTLY ON 3L NC AND SATING >90. POTASSIUM WAS REPLACED THROUGHOUT THE DAY. PLAN IS FOR A POTENTIAL DISCHARGE TOMORROW. ADDITIONAL BM CARE WAS ADMINISTERED THIS AM WITH NO RESULTS. WILL REPORT TO ONCOMING NURSE.
[2022-11-25 20:22] VITALS: BP 96/74
--- NOTE | 2022-11-26 04:31 | NUR ---
SHIFT SUMMARY PT A&OX4, AND COOPERATIVE WITH CARE. NO ACUTE CHANGES. VSS, THOUGH BP'S REMAIN A LITTLE SOFT. SBA TO BATHROOM, BUT USING BEDSIDE URINAL TO VOID WELL. NO BM THIS SHIFT. 3L PER NC, AND CONT BIOX AT BEDSIDE. PT REMAINS ON 1500ML FLUID RESTRICTION. CALLS APPROPRIATELY, CALL LIGHT WITHIN REACH.
[2022-11-26 06:11] LABS: Bun/Creatinine Ratio 18.9 (12.0-20.0); Calcium, Blood 8.7 mg/dL (8.5-10.1); Creatinine, Blood 1.11 mg/dL (0.60-1.20)
[2022-11-26 07:26] VITALS: BP 105/62
[2022-11-26] MEDS ORDERED: ERYT.5TO LEFTEYE (11:46)
[2022-11-26] MEDS ORDERED: CARV3.125 PO (11:46)
[2022-11-26] MEDS ORDERED: DILT60 PO (11:47)
[2022-11-26] MEDS ORDERED: AMIODARONE HCL100 M1 PO (11:48)
[2022-11-26] MEDS ORDERED: DIGOX125 MC1 PO (11:49)
--- NOTE | 2022-11-26 17:56 | NUR ---
SHIFT SUMMARY NO ACUTE CHANGES. PT WAS SWITCHED TO PO DIURETICS TODAY AND TAKEN OFF OF IV. PT IS CURRENTLY ON 2L NC ANS SATING >90. HE IS ON TELE RUNNING AFIB AND ON A CONTINUOUS PULSE OX. HE HAS HAD NO COMPLAINTS TODAY. HE WILL POTENTIALLY DISCHARGE TOMORROW, [facility] AND THE PROVIDER IS AWARE. CALL LIGHT WITHIN REACH, BED IN THE LOWEST POSITION. WILL REPORT TO ONCOMING NURSE.
[2022-11-26 20:10] VITALS: BP 109/58
[2022-11-27 05:17] VITALS: BP 113/68
--- NOTE | 2022-11-27 05:30 | NUR ---
SHIFT SUMMARY: A&O X 4, ABLE TO MAKE NEEDS KNOWN. CONTINUES ON ABX IV THERAPY WHICH HE IS TOLERATING WELL. HE DENIES ANY PAIN THIS EVENING. CONTINUES ON CONTINUOUS PULSE OX, PROVIDED EAR PROTECTORS TUBING IS MAKING HIS EARS SOAR. 3L O2 VIA NC, TITRATING O2. HE IS INDEPENDANT IN HIS ROOM, USES BATHROOM AND URINAL AT NIGHT. HE CONTINUES ON TELE A FLUTTER 75. PO LASIX FOR EDEMA, BLE IMPROVING 1 + EDEMA. CONTINUE 1500ML FLUID RESTRICTION STRICT I&O. CALL LIGHT WITHIN REACH.
[2022-11-27 05:55] LABS: Bun/Creatinine Ratio 15.9 (12.0-20.0); Calcium, Blood 8.7 mg/dL (8.5-10.1); Creatinine, Blood 1.26 mg/dL (0.60-1.20)
[2022-11-27 08:09] VITALS: BP 108/73
[2022-11-27 12:52] LABS: Bun/Creatinine Ratio 19.1 (12.0-20.0); Calcium, Blood 8.5 mg/dL (8.5-10.1); Creatinine, Blood 1.15 mg/dL (0.60-1.20); Potassium, Blood 4.1 mmol/L (3.5-5.5)
[2022-11-27 16:05] VITALS: BP 107/66
--- NOTE | 2022-11-27 17:17 | NUR ---
SHIFT SUAMMRY- NO ACUTE CHANGES. VSS. ATTEMPTED WEANING PT TO 2L, SATTING 70'S, 3L SATTING UPPER 80'S, 4L SATTING 96-98% UNLESS EXERTION THEN DESATS RAPIDLY. INCENTIVE SPIROMETER IN USE, WILL USE WHEN PROMPTED. EAGER TO D/C. EDUCATION PROVIDED ON DISCOURAGING SMOKING WITH HOME O2 WHEN D/C, PT AGREES WITH DANGER. WILL CONTINUE TO MONITOR. VOIDING WELL, STRICT INTAKE ON TRACT. CALL LIGHT IN REACH.
[2022-11-27 19:27] VITALS: BP 106/78
[2022-11-28 04:03] VITALS: BP 110/64
[2022-11-28 06:19] LABS: BASOPHILS ABSOLUTE AUTO 0.04 K/mm3 (0.00-0.23); BASOPHILS PERCENT AUTO 0 % (0-2); EOSINOPHILS ABSOLUTE AUTO 0.33 K/mm3 (0.00-0.68); EOSINOPHILS PERCENT AUTO 4 % (0-6); Hematocrit 33.8 % (37.0-53.0); Hemoglobin 10.4 g/dL (13.5-17.5); IMMATURE GRAN ABSOLUTE AUTO 0.03 K/mm3 (0.00-0.10); IMMATURE GRAN PERCENT AUTO 0 % (0-1); LYMPHOCYTES ABSOLUTE AUTO 1.38 K/mm3 (0.84-5.20); LYMPHOCYTES PERCENT AUTO 16 % (21-46); MONOCYTES PERCENT AUTO 7 % (4-13); Mean Corpuscular HGB 28.1 pg (26.0-34.0); Mean Corpuscular HGB Conc 30.8 g/dL (31.5-36.5); Mean Corpuscular Volume 91 fL (80-100); Mean Platelet Volume 10.5 fL (9.1-12.4); NEUTROPHILS ABSOLUTE AUTO 6.51 K/mm3 (1.96-9.15); NEUTROPHILS PERCENT AUTO 73 % (41-73); Platelet Count 270 K/mm3 (150-400); RDW Coefficient Variation 14.4 % (11.7-14.2); RDW Standard Deviation 48.2 fL (35.1-46.3); White Blood Cell Count 8.89 K/mm3 (4.00-11.30)
[2022-11-28 06:41] LABS: Bun/Creatinine Ratio 20.8 (12.0-20.0); Calcium, Blood 8.7 mg/dL (8.5-10.1); Creatinine, Blood 1.2 mg/dL (0.60-1.20); Potassium, Blood 3.9 mmol/L (3.5-5.5)
[2022-11-28 07:15] VITALS: BP 96/51
[2022-11-28 10:48] VITALS: BP 109/71
[2022-11-28] MEDS ORDERED: GABA400 PO (11:07)
[2022-11-28] MEDS ORDERED: CLOP75 PO (11:09)
[2022-11-28] MEDS ORDERED: Vitamin D2000 UNIT PO (11:10)
[2022-11-28] MEDS ORDERED: Lisinopril2.5 MG PO (11:11)
[2022-11-28] MEDS ORDERED: FERSU300 PO (11:12)
[2022-11-28] MEDS ORDERED: POTA10T PO (11:13)
[2022-11-28] MEDS ORDERED: TAMS.4ER PO (11:13)
[2022-11-28] MEDS ORDERED: XARELTO20 MG PO (11:15)
[2022-11-28] MEDS ORDERED: STRIVERDI RESPIM4 G1 IH (11:16)
[2022-11-28] MEDS ORDERED: ALBU90OI INH (11:16)
[2022-11-28] MEDS ORDERED: HYDHCL25 (11:17)
[2022-11-28] MEDS ORDERED: NITR.4SL SL (11:17)
[2022-11-28] MEDS ORDERED: JARDIANCE10 MG PO (13:41)
[2022-11-28] MEDS ORDERED: SOAANZ20 M2 PO (13:41)
--- NOTE | 2022-11-28 15:39 | NUR ---
PT DISCHARGED WITH DC INSTRUCTIONS. GOING HOME WITH , [facility]LLOW UP WITH [facility] AND [facility]. WENT OVER MED ADJUSTMENTS AND NEW MEDS. WENT OVER INSTRUCTIONS WITH PANTERA GUTIERREZ AND ANSWERED QUESTIONS. PT DEMNOSTRATED USE OF PORTABLE OXYGEN TANK. CONCENTRATOR WILL ARIVE AT HIS HOME TODAY. SENT HOME WITH BELONGINGS.
== END 2022-11-28 15:26 | disposition home health service (06) | DRG 177 ==
LOC: ER 10:00 → MEDS 10:01 → ENPENDDIS 11-28 13:21 → MEDS 11-28 15:26
PROVIDERS: Family Medicine; Family Medicine Adult Medicine; Hospitalist; Student in an Organized Health Care Education/Training Program; ADMIT Internal Medicine
DX: J69.0 Pneumonitis due to inhalation of food and vomit (principal); I50.23 Acute on chronic systolic (congestive) heart failure; J96.01 Acute respiratory failure with hypoxia; J44.0 Chronic obstructive pulmonary disease with (acute) lower respiratory infection; I11.0 Hypertensive heart disease with heart failure; E87.6 Hypokalemia; E78.5 Hyperlipidemia, unspecified; F41.9 Anxiety disorder, unspecified; F17.210 Nicotine dependence, cigarettes, uncomplicated; F32.A Depression, unspecified; F43.10 Post-traumatic stress disorder, unspecified; I48.0 Paroxysmal atrial fibrillation; I25.10 Atherosclerotic heart disease of native coronary artery without angina pectoris; K21.9 Gastro-esophageal reflux disease without esophagitis; E66.9 Obesity, unspecified; R94.31 Abnormal electrocardiogram [ECG] [EKG]; D63.8 Anemia in other chronic diseases classified elsewhere; I95.9 Hypotension, unspecified; I49.3 Ventricular premature depolarization; Z20.822 Contact with and (suspected) exposure to COVID-19; Z96.653 Presence of artificial knee joint, bilateral; Z68.26 Body mass index [BMI] 26.0-26.9, adult; Z98.890 Other specified postprocedural states; Z95.5 Presence of coronary angioplasty implant and graft; Z79.82 Long term (current) use of aspirin; Z79.01 Long term (current) use of anticoagulants; Z79.51 Long term (current) use of inhaled steroids; Z79.02 Long term (current) use of antithrombotics/antiplatelets; Z79.811 Long term (current) use of aromatase inhibitors; Z79.899 Other long term (current) drug therapy; I25.2 Old myocardial infarction; Z71.6 Tobacco abuse counseling
CPT/HCPCS: 0202U; 36415; 71045; 71046; 71260; 80048; 80053; 83735; 83880; 84132; 84484; 85014; 85018; 85025; 92526; 92610; 93005; 93010; 93306; 94640; 94664; 94761; 94762; 96365; 96375; 96376; 97116; 97162; 97530; 99285-25; A9270; G0378; J0295; J0572; J1940; J3475; Q9967